=== PATIENT | male | born 1980 | race Hispanic/Latino ===

== ENCOUNTER 2019-09-07 04:43 | Observation (INO) | payer OTHER ==
[~2019-09-07] VITALS: Ht 175.3 cm; Wt 102.1 kg
[2019-09-07] MEDS ORDERED: PANTOPRAZOLE 40 MG 10ML VIAL IV STA (04:56)
[2019-09-07] MEDS ORDERED: BELLADONNA ALK/PHENOBARBITAL 5 ML UDC PO SCH (05:00)
[2019-09-07] MEDS ORDERED: LIDOCAINE VISC 2% SOLN 15 ML UDC PO ONE (05:00)
[2019-09-07] MEDS ORDERED: MAGNESIUM/ALUMINUM/SIMETHICONE 30 ML UDC PO ONE (05:00)
--- NOTE | 2019-09-07 05:17 | Emergency Department Note ---
History of Present Illnes History of Present Illness Chief Complaint: Abdominal Complaints History of Present Illness This is a 39 year old male presents with upper abdominal pain radiating up his throat with a soured the back of his mouth. Patient reportedly has had pancreatitis before reports he is a daily drinker. Denies nausea vomiting diarrhea. . Historian: Patient Arrival Mode: Car Onset (how long ago): day(s) (2) Location: EPIGASTRIC Radiation: Reports other (TO CHEST AND THROAT WITH BURNING SENSATION TO THROAT) Onset quality: gradual Duration (how long): day(s) (2) Progression: waxing and waning Chronicity: new Context: Denies recent illness Relieving factors: none Exacerbating factors: none Associated symptoms: Reports denies other symptoms (NILSA ABRAMS MD) Past Medical/Family History Physician Review I have reviewed the patient's past medical and family history. Any updates have been documented here. (NILSA ABRAMS MD) Past Medical History Recent Fever: No Clinical Suspicion of Infectio: No New/Unexplained Change in Ment: No Other Medical History: PANCREATITIS Past Surgical History: T&A, Bariatric Surgery Other Surgery: GASTRIC SLEEVE (NILSA ABRAMS MD) Social History Smoking Cessation: Current every day smoker Alcohol Use: Daily Any Illegal Drug Use: No TB Exposure/Symptoms: No Physically hurt or threatened: No (NILSA ABRAMS MD) Other Any Pre-Existing Lines (PICC,: No Is patient up to date on immun: Yes Last Flu: UTD Last Pneumovax: UNK (NILSA ABRAMS MD) Review of Systems Review of Systems Constitutional: Reports no symptoms EENTM: Reports no symptoms Cardiovascular: Reports as per HPI Respiratory: Reports no symptoms Gastrointestinal: Reports as per HPI Genitourinary: Reports no symptoms Musculoskeletal: Reports no symptoms Integumentary: Reports no symptoms Neurological: Reports no symptoms Psychological: Reports no symptoms Endocrine: Reports no symptoms Hematological/Lymphatic: Reports no symptoms (NILSA ABRAMS MD) Physical Exam Related Data Allergies: Coded Allergies: No Known Allergies (Unverified , 09/07/19) Triage Vital Signs Vital Signs Date Time Temp Pulse Resp B/P (MAP) Pulse Ox O2 Delivery O2 Flow Rate FiO2 09/07/19 04:47 62 20 157/100 100 Vital signs reviewed: Yes (NILSA ABRAMS MD) Physical Exam CONSTITUTIONAL Constitutional: Present well-developed, Present well-nourished HENT HENT: Present normocephalic, Present atraumatic, Present oropharynx clear/mois t, Present nose normal HENT L/R: Present left ext ear normal, Present right ext ear normal EYES Eyes: Reports PERRL, Reports conjunctivae normal NECK Neck: Present ROM normal PULMONARY Pulmonary: Present effort normal, Present breath sounds normal CARDIOVASCULAR Cardiovascular: Present regular rhythm, Present heart sounds normal, Present capillary refill normal, Present normal rate GASTROINTESTINAL Abdominal: Present soft, Present bowel sounds normal, Present tender (MODERATE TENDERNESS TO EPIGASTRIC, LUQ, ) GENITOURINARY Genitourinary: Present exam deferred SKIN Skin: Present warm, Present dry MUSCULOSKELETAL Musculoskeletal: Present ROM normal NEUROLOGICAL Neurological: Present alert, Present oriented x 3, Present no gross motor or sensory deficits PSYCHOLOGICAL Psychological: Present mood/affect normal, Present judgement normal (NILSA ABRAMS MD) Results Laboratory Lab results reviewed: Yes (NURIA TAVERA DO) Imaging Imaging results reviewed: Yes Impressions IMPRESSION: Acute interstitial edematous pancreatitis. No organized acute peripancreatic fluid collection. Prominent common duct. This finding may be correlated with liver function tests to assess for cholestasis and the need for further evaluation with MRCP or ERCP. Cholelithiasis. Postoperative changes of the stomach, including prior Amanda-en-Y gastric bypass. Lesions in the right and left hepatic lobes are probably hemangiomas, but are incompletely characterized on this exam. Nonemergent abdomen MRI with and without intravenous contrast (liver protocol) may be obtained for further characterization. Signed by: Nathan Barrera MD on 09/07/2019 11:02 AM (NURIA TAVERA DO) Procedures 12 Lead ECG Interpretation ECG Interpretation : ECG: ECG 1 Tube Splicer: Interpreted by ED physician Date: Sep 07, 2019 Time: 04:56 Rhythm: sinus rhythm Rate: normal BPM: 63 QRS axis: normal ST segments normal: Yes T waves normal: Yes Other findings: no other findings Clinical Impression: normal ECG (NILSA ABRAMS MD) Assessment & Plan Medical Decision Making MDM Patient is a daily drinker of alcohol presents with epigastric pain and left upper quadrant and radiates into chest and throat has a burning sensation throats are tasting back his mouth. CBC, CMP, EKG, cardiac enzymes, amylase, lipase ordered to eval for pancreatitis, myocardial infarction, elevated LFTs, Protonix 40 mg IV ordered, GI cocktail by mouth ordered. (NILSA ABRAMS MD) MDM Signout obtained from Dr. Abrams to follow-up lab work and imaging. Patient with marked lipase elevation noted, CT abdomen and pelvis performed which was consistent with mild interstitial pancreatitis. Patient required hospital admission for further workup and management. (NURIA TAVERA DO) Assessment & Plan Final Impression: (1) Abdominal pain (NILSA ABRAMS MD) Final Impression: (1) Abdominal pain (2) Pancreatitis (NURIA TAVERA DO) Depart Disposition: ADMITTED Last Vital Signs Date Time Temp Pulse Resp B/P (MAP) Pulse Ox O2 Delivery O2 Flow Rate FiO2 09/07/19 04:47 62 20 157/100 100 (NILSA ABRAMS MD) Home Meds Active Scripts Ondansetron Hcl* (ZOFRAN*) 4 Mg Tablet, 4 MG PO Q8H PRN for NAUSEA, #10 Prov:[employer] 09/08/19 Acetaminophen With Codeine (TYLENOL WITH CODEINE #3 TABLET) 1 Each Tablet, 300 MG PO Q8H PRN for ABDOMINAL PAIN, #10 TAB Prov:[employer] 09/08/19 Medications in the ED Magnesium Aluminum Silicate 30 ml ONCE ONCE PO ; Start 09/07/19 at 05:00; Stop 09/07/19 at 05:04; Status DC Lidocaine HCl 20 ml ONCE ONCE PO ; Start 09/07/19 at 05:00; Stop 09/07/19 at 05:03; Status DC Belladonna Alkaloids/ Phenobarbital 10 ml ONCE PO ; Start 09/07/19 at 05:00; Stop 10/07/19 at 04:59 Pantoprazole Sodium 40 mg NOW STAT IV ; Start 09/07/19 at 04:56; Stop 09/07/19 at 05:04; Status DC (NILSA ABRAMS MD) NILSA ABRAMS MD Sep 07, 2019 05:17 NURIA TAVERA DO Sep 09, 2019 09:39
[2019-09-07] MEDS ORDERED: ONDANSETRON HCL INJ 2MG/ML 2ML 2 MG/ML VIAL IV STA (05:29)
[2019-09-07 05:35] LABS: BASOPHILS # (AUTO) 0.1 (0.0-0.1); BASOPHILS % 0.7 % (0.0-1.0); EOSINOPHILS % 0.1 % (0.0-6.0); HEMATOCRIT 40.8 % (38.2-49.6); HEMOGLOBIN 12.5 g/dL (14.0-18.0); LYMPHOCYTES # (AUTO) 1.5 (1.0-3.2); LYMPHOCYTES % 18.1 % (18.0-39.1); MEAN CORPUSCULAR HEMOGLOBIN 25.2 pg (28-32); MEAN CORPUSCULAR HGB CONC 30.6 g/dL (31-35); MEAN CORPUSCULAR VOLUME 82.3 fL (81-99); MONOCYTES # (AUTO) 0.7 (0.2-0.8); MONOCYTES % 8.2 % (4.4-11.3); NEUTROPHILS # (AUTO) 6.1 (2.1-6.9); NEUTROPHILS % 72.7 % (38.7-80.0); PLATELET COUNT 282 x10e3/uL (140-360); RED BLOOD COUNT 4.96 x10e6/uL (4.3-5.7); RED CELL DISTRIBUTION WIDTH 15.9 % (11.7-14.4)
[2019-09-07] MEDS ORDERED: ONDANSETRON HCL INJ 2MG/ML 2ML 2 MG/ML VIAL ONE (05:40)
[2019-09-07 05:58] LABS: ALANINE AMINOTRANSFERASE 26 IU/L (0-55); ALBUMIN 3.5 g/dL (3.5-5.0); ALBUMIN/GLOBULIN RATIO 1.1 (0.8-2.0); ALKALINE PHOSPHATASE 110 IU/L (40-150); ANION GAP 16.6 mmol/L (8-16); BLOOD UREA NITROGEN 6 mg/dL (7-26); BUN/CREATININE RATIO 6 (6-25); CALCIUM 8.6 mg/dL (8.4-10.2); CARBON DIOXIDE 23 mmol/L (22-29); CHLORIDE 101 mmol/L (98-107); CREATINE KINASE 145 IU/L (30-200); CREATININE, SERUM 0.94 mg/dL (0.72-1.25); EST GLOMERULAR FILTRATION RATE > 60 ML/MIN (60-); GLUCOSE 139 mg/dL (74-118); POTASSIUM 3.6 mmol/L (3.5-5.1); SODIUM 137 mmol/L (136-145)
[2019-09-07] MEDS ORDERED: MORPHINE SULFATE 2 MG/ML SYR 1ML IV STA (06:22)
[2019-09-07 06:45] LABS: AMYLASE 366 U/L (25-125)
[2019-09-07 07:05] LABS: LIPASE 1382 U/L (8-78)
[2019-09-07] MEDS ORDERED: KETOROLAC TROMETHAMINE 30 MG/ML VIAL IV STA (07:55)
[2019-09-07] MEDS ORDERED: SODIUM CHLORIDE 0.9% 1000ML 1,000 ML IV SCH (08:00)
[2019-09-07] MEDS ORDERED: SODIUM CHLORIDE 0.9% 1000ML 1,000 ML ONE (08:10)
[2019-09-07] MEDS ORDERED: IOPAMIDOL 370 MG/ML 200 ML INFUS..BTL INJ ONE (08:36)
[2019-09-07] MEDS ORDERED: SODIUM CHLORIDE 0.9% 50ML 50 ML ONE (08:36)
--- NOTE | 2019-09-07 11:05 | Diagnostic Imaging Report ---
TECHNIQUE: CT of the abdomen and pelvis WITH intravenous contrast and WITHOUT oral contrast. Dose modulation, iterative reconstruction, and/or weight-based adjustment of the mA/kV was utilized to reduce the radiation dose to as low as reasonably achievable. INDICATION: 39-year-old man with abdominal pain. COMPARISON: None. FINDINGS: LOWER THORAX: 5 mm nodule in the left lower lobe; no follow-up imaging recommended for this finding. HEPATOBILIARY: 2.4 x 3.2 cm lesion in the left hepatic lobe with peripheral nodular enhancement. Additional 2.2 x 1.8 cm lesion in the inferior right hepatic lobe with questionable peripheral nodular enhancement. Cholelithiasis in the distended gallbladder. Common duct is prominent up to 1.2 cm in diameter. No intrahepatic biliary ductal prominence. SPLEEN: No splenomegaly. PANCREAS: Edema/nonencapsulated fluid around the homogeneously enhancing pancreas, particularly around the head and neck, also extends into the mesentery as well as along the left anterior renal fascia. No focal masses or ductal dilatation. ADRENALS: No adrenal nodules. KIDNEYS/URETERS: No hydronephrosis, stones, or solid mass lesions. PELVIC ORGANS/BLADDER: Bladder is under distended. Prostate and seminal vesicles are grossly unremarkable. PERITONEUM/RETROPERITONEUM: Trace ascites. No free air. LYMPH NODES: No lymphadenopathy. VESSELS: Unremarkable. GI TRACT: Prior Amanda-en-Y gastric bypass. Ringlike implanted device in the region of the gastric cardia. No distention or wall thickening. Normal appendix. BONES AND SOFT TISSUES: Degenerative changes of the visualized spine. Small fat-containing left internal hernia. IMPRESSION: Acute interstitial edematous pancreatitis. No organized acute peripancreatic fluid collection. Prominent common duct. This finding may be correlated with liver function tests to assess for cholestasis and the need for further evaluation with MRCP or ERCP. Cholelithiasis. Postoperative changes of the stomach, including prior Amanda-en-Y gastric bypass. Lesions in the right and left hepatic lobes are probably hemangiomas, but are incompletely characterized on this exam. Nonemergent abdomen MRI with and without intravenous contrast (liver protocol) may be obtained for further characterization. Signed by: Nathan Barrera MD on 09/07/2019 11:02 AM
[2019-09-07] MEDS ORDERED: MORPHINE SULFATE INJ 4 MG/ML INJ 1ML IV PRN (11:15)
[2019-09-07] MEDS ORDERED: ONDANSETRON HCL INJ 2MG/ML 2ML 2 MG/ML VIAL IV PRN (11:15)
[2019-09-07] MEDS: SODIUM CHLORIDE 0.9% 1000ML 1,000 ML IV SCH ×2 (12:02→20:51)
[2019-09-07 13:40] VITALS: BP 148/98
[2019-09-07] MEDS: MORPHINE SULFATE INJ 4 MG/ML INJ 1ML IV PRN ×3 (14:39→20:51)
[2019-09-07 15:41] VITALS: BP 151/88
[2019-09-07 15:43] VITALS: BP 151/88
[2019-09-07 19:47] VITALS: BP 129/84
--- NOTE | 2019-09-07 19:49 | NUR ---
pt received. pt assessed. no ss of distress noted. pt co constant abd pain. discussed pain mngt poc. verbalized understanding. will medicate per orders. pt requesting ice. discussed npo diet. verbalized understanding. will cont to follow poc. call green within reach.
--- NOTE | 2019-09-07 19:55 | NUR ---
spoke to catalina watts regarding fever. new orders received.
[2019-09-07] MEDS ORDERED: ACETAMINOPHEN 650 MG SUPP PR PRN (20:00)
--- NOTE | 2019-09-07 20:00 | NUR ---
room temp made cooler, blankets removed. no ss of distress noted. call green within reach.
--- NOTE | 2019-09-07 22:20 | NUR ---
temp rechecked at time 99 orally. no distress noted. call green within reach.
[2019-09-07 23:56] VITALS: BP 135/84
[2019-09-08] MEDS: MORPHINE SULFATE INJ 4 MG/ML INJ 1ML IV PRN ×4 (03:09→08:57)
--- NOTE | 2019-09-08 03:48 | NUR ---
spoke to dr ronaldo garcia regarding iv fluids. new orders received.
[2019-09-08] MEDS: LACTATED RINGER'S 1,000 ML INJ SCH ×2 (04:21→06:07)
--- NOTE | 2019-09-08 04:21 | NUR ---
pt resting. no ss of distress noted. call green within reach.
[2019-09-08 05:01] VITALS: BP 129/81
[2019-09-08 05:29] LABS: BASOPHILS % 0.2 % (0.0-1.0); EOSINOPHILS % 0.1 % (0.0-6.0); LYMPHOCYTES # (AUTO) 1.4 (1.0-3.2); LYMPHOCYTES % 8.7 % (18.0-39.1); MEAN CORPUSCULAR HEMOGLOBIN 25.7 pg (28-32); MEAN CORPUSCULAR HGB CONC 31.4 g/dL (31-35); MEAN CORPUSCULAR VOLUME 81.8 fL (81-99); MONOCYTES % 6.3 % (4.4-11.3); NEUTROPHILS # (AUTO) 13.1 (2.1-6.9); NEUTROPHILS % 84.3 % (38.7-80.0); PLATELET COUNT 207 x10e3/uL (140-360); RED BLOOD COUNT 4.28 x10e6/uL (4.3-5.7)
[2019-09-08 05:39] LABS: CHOL/HDL RATIO 1.5 (3.9-4.7); MAGNESIUM 1.5 MG/DL (1.3-2.1); PHOSPHORUS 2.7 MG/DL (2.3-4.7)
[2019-09-08 05:57] LABS: AMYLASE 587 U/L (25-125); ANION GAP 14.7 mmol/L (8-16); BLOOD UREA NITROGEN 7 mg/dL (7-26); BUN/CREATININE RATIO 9 (6-25); CALCIUM 7.7 mg/dL (8.4-10.2); CARBON DIOXIDE 22 mmol/L (22-29); CHLORIDE 104 mmol/L (98-107); CREATININE, SERUM 0.79 mg/dL (0.72-1.25); EST GLOMERULAR FILTRATION RATE > 60 ML/MIN (60-); GLUCOSE 109 mg/dL (74-118); LIPASE 1168 U/L (8-78); POTASSIUM 3.7 mmol/L (3.5-5.1); SODIUM 137 mmol/L (136-145)
[2019-09-08 06:00] LABS: THYROID STIMULATING HORMONE 1.766 uIU/mL (0.350-4.940)
--- NOTE | 2019-09-08 07:00 | NUR ---
BEDSIDE SHIFT REPORT FROM P[employer]ING MACHINE [employer] FEEDER RN. PT DENIES NEEDS AT THIS TIME.
[2019-09-08 08:14] VITALS: BP 128/88
[2019-09-08 08:17] VITALS: BP 128/88
[2019-09-08] MEDS ORDERED: ZOFRAN4 MG PO (09:00)
[2019-09-08] MEDS ORDERED: ACETAMINOPHEN/CODEINE 300MG - 30MG TAB PO PRN (09:00)
[2019-09-08] MEDS ORDERED: MORPHINE SULFATE INJ 4 MG/ML INJ 1ML IV PRN (09:00)
[2019-09-08] MEDS ORDERED: FAMOTIDINE 20 MG/2 ML VIAL IV SCH (09:00)
[2019-09-08] MEDS ORDERED: TYLENOL WITH C1 EACH PO (09:00)
[2019-09-08] MEDS: SODIUM CHLORIDE 0.9% 1000ML 1,000 ML IV SCH ×2 (09:07→16:57)
[2019-09-08] MEDS ORDERED: MORPHINE SULFATE 2 MG/ML SYR 1ML IV PRN (09:15)
[2019-09-08 11:52] VITALS: BP 139/91
--- NOTE | 2019-09-09 04:13 | Discharge Summary ---
ADMISSION DIAGNOSIS: Acute pancreatitis due to EtOH abuse. DISCHARGE DIAGNOSIS: Acute pancreatitis due to EtOH abuse. HISTORY: None. SURGICAL HISTORY: Gastric bypass, tonsillectomy. FAMILY HISTORY: Noncontributory. SOCIAL HISTORY: The patient admits to smoking 1 pack every three days and he drinks about 6-8 beers per week. Over the last month, he admits that he had alcohol every other day, which likely resulted in his pancreatitis. HOSPITAL COURSE: A 39-year-old male admits with epigastric pain. He denies nausea and vomiting. On admission, the patient's lipase was 1382. The patient was kept n.p.o. and IV fluids were started. GI was consulted. The following day, the patient is feeling much better, although the lipase is still elevated. He asked to advance the diet and tolerated it well, so he will discharge home with new prescriptions for Tylenol 3 and Zofran p.r.n. He will follow up with primary care in 1 to 2 weeks. He was advised to stop drinking alcohol. The patient understands instructions and agrees to plan, vital signs stable, the patient is afebrile. Dictated by Charu Damian NP MD JERICA Mccormack/MODL /[id number]
== END 2019-09-08 18:28 | disposition home or self-care (01) ==
LOC: ER 04:43 → ERHOLD 11:14 → MED/SURG2 13:37
PROVIDERS: ADMIT Internal Medicine; ATTEND Internal Medicine
DX: K85.20 Alcohol induced acute pancreatitis without necrosis or infection (principal); F17.210 Nicotine dependence, cigarettes, uncomplicated; F10.10 Alcohol abuse, uncomplicated; Z98.84 Bariatric surgery status; Z11.59 Encounter for screening for other viral diseases
CPT/HCPCS: 36415; 74177; 80048; 80053; 80061; 82150; 82550; 82553; 82948; 83036; 83690; 83735; 84100; 84443; 84484; 85025; 87635; 93005; 96376; 99284; G0378; J1885; J2270; J2405; J7030; J7121; Q9967

== ENCOUNTER 2020-09-12 12:00 | Inpatient (IN) | payer SELFPAY ==
[~2020-09-12] VITALS: Ht 175.3 cm; Wt 83.0 kg
[~2020-09-12 12:00] MED LIST: TYLENOL WITH C1 EACH PO; ZOFRAN4 MG PO
[2020-09-12] MEDS ORDERED: SODIUM CHLORIDE 0.9% 1000ML 1,000 ML ONE (12:50)
[2020-09-12] MEDS ORDERED: MORPHINE SULFATE INJ 4 MG/ML INJ 1ML ONE ×2 (12:50→13:43)
[2020-09-12] MEDS ORDERED: ONDANSETRON HCL INJ 2MG/ML 2ML 2 MG/ML VIAL ONE (12:50)
[2020-09-12] MEDS ORDERED: MORPHINE SULFATE INJ 2 MG/ML SYR IV PRN (14:45)
[2020-09-12] MEDS: SODIUM CHLORIDE 0.9% 1000ML 1,000 ML IV SCH ×2 (15:08→21:15)
[2020-09-12] MEDS ORDERED: SODIUM CHLORIDE 0.9% 50ML 50 ML ONE (15:58)
[2020-09-12] MEDS ORDERED: GADOBENATE DIMEGLUMINE 1 ML IV ONE (15:58)
[2020-09-12] MEDS: MORPHINE SULFATE INJ 4 MG/ML INJ 1ML IV PRN ×2 (17:00→21:15)
[2020-09-12] MEDS: ONDANSETRON HCL INJ 2MG/ML 2ML 2 MG/ML VIAL IV PRN ×3 (17:00→21:15)
[2020-09-12 18:38] LABS: ALANINE AMINOTRANSFERASE 25 IU/L (0-55); ALBUMIN 3.8 g/dL (3.5-5.0); ALBUMIN/GLOBULIN RATIO 1.1 (0.8-2.0); ALKALINE PHOSPHATASE 105 IU/L (40-150); ANION GAP 18.9 mmol/L (8-16); BLOOD UREA NITROGEN 8 mg/dL (7-26); BUN/CREATININE RATIO 10 (6-25); CARBON DIOXIDE 22 mmol/L (22-29); CHLORIDE 98 mmol/L (98-107); EST GLOMERULAR FILTRATION RATE 108 ML/MIN (60-); GLUCOSE 151 mg/dL (74-118); LIPASE 1010 U/L (8-78); POTASSIUM 3.9 mmol/L (3.5-5.1); SODIUM 135 mmol/L (136-145)
[2020-09-12 18:40] LABS: BASOPHILS % 0.4 % (0.0-1.0); HEMATOCRIT 43.7 % (38.2-49.6); HEMOGLOBIN 14.7 g/dL (14.0-18.0); LYMPHOCYTES % 10.3 % (18.0-39.1); MEAN CORPUSCULAR HEMOGLOBIN 29.1 pg (28-32); MEAN CORPUSCULAR HGB CONC 33.6 g/dL (31-35); MEAN CORPUSCULAR VOLUME 86.5 fL (81-99); MONOCYTES # (AUTO) 0.6 (0.2-0.8); MONOCYTES % 6.4 % (4.4-11.3); NEUTROPHILS # (AUTO) 7.9 (2.1-6.9); NEUTROPHILS % 82.5 % (38.7-80.0); PLATELET COUNT 250 x10e3/uL (140-360); RED BLOOD COUNT 5.05 x10e6/uL (4.3-5.7); RED CELL DISTRIBUTION WIDTH 15.4 % (11.7-14.4)
[2020-09-12 18:41] LABS: AMPHETAMINES SCREEN,URINE NEGATIVE (NEGATIVE); BACTERIA,URINE FEW /HPF; BENZODIAZEPINES SCREEN,URINE NEGATIVE (NEGATIVE); CLARITY,URINE CLEAR (CLEAR); COLOR,URINE YELLOW (YELLOW); EPITHELIAL CELLS,URINE FEW /LPF; KETONES,URINE 2+ (NEGATIVE); LEUKOCYTE ESTERASE ,URINE NEGATIVE (NEGATIVE); NITRITE,URINE POSITIVE (NEGATIVE); PHENCYCLIDINE SCREEN,URINE NEGATIVE (NEGATIVE); PROTEIN,URINE DIPSTICK 2+ (NEGATIVE); RBC,URINE 0-5 /HPF (0-5); URINE UROBILINOGEN 0.2 mg/dL (0.2 - 1)
[2020-09-12 19:00] VITALS: BP 148/90
[2020-09-12] MEDS: NICOTINE 14 MG/EA PATCH TOP SCH (19:15)
[2020-09-12 19:46] VITALS: BP 142/91
[2020-09-12 19:55] VITALS: BP 142/91
[2020-09-12 20:00] VITALS: BP 156/104
[2020-09-12 23:39] VITALS: BP 148/90
[2020-09-13 01:24] LABS: AMYLASE 298 U/L (25-125); LIPASE 1006 U/L (8-78)
[2020-09-13] MEDS: ONDANSETRON HCL INJ 2MG/ML 2ML 2 MG/ML VIAL IV PRN ×3 (01:25→17:20)
[2020-09-13] MEDS: MORPHINE SULFATE INJ 4 MG/ML INJ 1ML IV PRN ×2 (01:25→06:14)
[2020-09-13 04:00] VITALS: BP 141/89
[2020-09-13] MEDS ORDERED: DONNATAL/LIDOCAINE/MAALOX 30 ML SUSP PO ONE (04:45)
[2020-09-13] MEDS ORDERED: BELLADONNA ALK/PHENOBARBITAL 5 ML UDC PO ONE (04:45)
[2020-09-13] MEDS ORDERED: LIDOCAINE VISC 2% SOLN 15 ML UDC PO ONE (04:45)
[2020-09-13] MEDS ORDERED: MAGNESIUM/ALUMINUM/SIMETHICONE 30 ML UDC PO ONE (04:45)
[2020-09-13 05:56] LABS: BASOPHILS % 0.3 % (0.0-1.0); EOSINOPHILS % 0.1 % (0.0-6.0); HEMATOCRIT 39.7 % (38.2-49.6); HEMOGLOBIN 13.1 g/dL (14.0-18.0); LYMPHOCYTES # (AUTO) 1.1 (1.0-3.2); LYMPHOCYTES % 9.4 % (18.0-39.1); MEAN CORPUSCULAR HEMOGLOBIN 29.2 pg (28-32); MEAN CORPUSCULAR VOLUME 88.4 fL (81-99); MONOCYTES # (AUTO) 0.8 (0.2-0.8); MONOCYTES % 6.5 % (4.4-11.3); NEUTROPHILS % 83.4 % (38.7-80.0); PLATELET COUNT 225 x10e3/uL (140-360); RED BLOOD COUNT 4.49 x10e6/uL (4.3-5.7); RED CELL DISTRIBUTION WIDTH 15.2 % (11.7-14.4)
[2020-09-13 06:34] LABS: ALBUMIN 3.2 g/dL (3.5-5.0); CREATININE, SERUM 0.78 mg/dL (0.72-1.25)
[2020-09-13] MEDS: SODIUM CHLORIDE 0.9% 1000ML 1,000 ML IV SCH ×3 (06:50→17:30)
[2020-09-13 08:09] VITALS: BP 147/84
[2020-09-13] MEDS: CEFTRIAXONE 1 GM in SODIUM CHLORIDE 0.9% 50ML 50 ML IV SCH (08:20)
[2020-09-13] MEDS: NICOTINE 14 MG/EA PATCH TOP SCH (08:20)
[2020-09-13] MEDS: SUCRALFATE 1 GM TAB PO SCH ×4 (08:23→21:14)
[2020-09-13 08:55] VITALS: BP 147/84
[2020-09-13] MEDS: HYDROMORPHONE 1MG/1ML INJ IV PRN ×4 (09:03→19:31)
[2020-09-13 11:23] VITALS: BP 144/88
[2020-09-13 15:16] VITALS: BP 144/95
[2020-09-13 20:00] VITALS: BP 143/88
[2020-09-14] VITALS (8 sets, daily range): BP systolic 117–159; BP diastolic 81–104
[2020-09-14] MEDS: ONDANSETRON HCL INJ 2MG/ML 2ML 2 MG/ML VIAL IV PRN (00:35)
[2020-09-14] MEDS: HYDROMORPHONE 1MG/1ML INJ IV PRN ×4 (00:42→21:01)
[2020-09-14] MEDS: SODIUM CHLORIDE 0.9% 1000ML 1,000 ML IV SCH ×3 (02:52→20:53)
[2020-09-14] MEDS ORDERED: ACETAMINOPHEN 325 MG TAB PO PRN (03:30)
[2020-09-14 05:30] LABS: BASOPHILS % 0.3 % (0.0-1.0); EOSINOPHILS # (AUTO) 0.1 (0.0-0.4); EOSINOPHILS % 0.7 % (0.0-6.0); HEMATOCRIT 36.1 % (38.2-49.6); HEMOGLOBIN 11.7 g/dL (14.0-18.0); LYMPHOCYTES # (AUTO) 1.5 (1.0-3.2); LYMPHOCYTES % 15.1 % (18.0-39.1); MEAN CORPUSCULAR HEMOGLOBIN 29.1 pg (28-32); MEAN CORPUSCULAR HGB CONC 32.4 g/dL (31-35); MEAN CORPUSCULAR VOLUME 89.8 fL (81-99); MONOCYTES # (AUTO) 0.7 (0.2-0.8); MONOCYTES % 6.8 % (4.4-11.3); NEUTROPHILS # (AUTO) 7.7 (2.1-6.9); NEUTROPHILS % 76.7 % (38.7-80.0); PLATELET COUNT 177 x10e3/uL (140-360); RED BLOOD COUNT 4.02 x10e6/uL (4.3-5.7); RED CELL DISTRIBUTION WIDTH 15.1 % (11.7-14.4)
[2020-09-14 06:01] LABS: ALANINE AMINOTRANSFERASE 19 IU/L (0-55); ALBUMIN 2.9 g/dL (3.5-5.0); ALBUMIN/GLOBULIN RATIO 0.9 (0.8-2.0); ALKALINE PHOSPHATASE 77 IU/L (40-150); ANION GAP 13.4 mmol/L (8-16); BLOOD UREA NITROGEN < 5 mg/dL (7-26); CALCIUM 8.2 mg/dL (8.4-10.2); CARBON DIOXIDE 26 mmol/L (22-29); CHLORIDE 99 mmol/L (98-107); CREATININE, SERUM 0.69 mg/dL (0.72-1.25); EST GLOMERULAR FILTRATION RATE 128 ML/MIN (60-); GLUCOSE 77 mg/dL (74-118); POTASSIUM 3.4 mmol/L (3.5-5.1); SODIUM 135 mmol/L (136-145)
[2020-09-14 06:08] LABS: BUN/CREATININE RATIO 7 (6-25)
[2020-09-14 07:27] LABS: AMYLASE 227 U/L (25-125); LIPASE 647 U/L (8-78)
[2020-09-14] MEDS: SUCRALFATE 1 GM TAB PO SCH ×4 (09:25→20:53)
[2020-09-14] MEDS: NICOTINE 14 MG/EA PATCH TOP SCH (09:25)
[2020-09-14] MEDS: CEFTRIAXONE 1 GM in SODIUM CHLORIDE 0.9% 50ML 50 ML IV SCH (09:25)
[2020-09-14] MEDS ORDERED: POTASSIUM CHLORIDE 10MEQ/100ML 400 ML IV ONE (11:00)
[2020-09-15] VITALS (8 sets, daily range): BP systolic 129–151; BP diastolic 79–97
[2020-09-15] MEDS: HYDROMORPHONE 1MG/1ML INJ IV PRN ×6 (00:20→21:51)
[2020-09-15] MEDS ORDERED: LIDOCAINE VISC 2% SOLN 15 ML UDC PO ONE (04:15)
[2020-09-15] MEDS ORDERED: BELLADONNA ALK/PHENOBARBITAL 5 ML UDC PO ONE (04:15)
[2020-09-15] MEDS ORDERED: MAGNESIUM/ALUMINUM/SIMETHICONE 30 ML UDC PO ONE (04:15)
[2020-09-15] MEDS ORDERED: DONNATAL/LIDOCAINE/MAALOX 30 ML SUSP PO ONE (04:15)
[2020-09-15] MEDS: SODIUM CHLORIDE 0.9% 1000ML 1,000 ML IV SCH ×3 (04:43→21:44)
[2020-09-15 04:53] LABS: BASOPHILS % 0.5 % (0.0-1.0); EOSINOPHILS # (AUTO) 0.1 (0.0-0.4); EOSINOPHILS % 1.3 % (0.0-6.0); HEMATOCRIT 37.7 % (38.2-49.6); HEMOGLOBIN 12.5 g/dL (14.0-18.0); LYMPHOCYTES # (AUTO) 1.6 (1.0-3.2); LYMPHOCYTES % 18.8 % (18.0-39.1); MEAN CORPUSCULAR HEMOGLOBIN 29.1 pg (28-32); MEAN CORPUSCULAR HGB CONC 33.2 g/dL (31-35); MEAN CORPUSCULAR VOLUME 87.7 fL (81-99); MONOCYTES # (AUTO) 0.7 (0.2-0.8); MONOCYTES % 7.7 % (4.4-11.3); NEUTROPHILS # (AUTO) 6.2 (2.1-6.9); NEUTROPHILS % 71.5 % (38.7-80.0); PLATELET COUNT 200 x10e3/uL (140-360); RED CELL DISTRIBUTION WIDTH 14.6 % (11.7-14.4)
[2020-09-15 05:18] LABS: ALANINE AMINOTRANSFERASE 14 IU/L (0-55); ALBUMIN/GLOBULIN RATIO 0.9 (0.8-2.0); ALKALINE PHOSPHATASE 72 IU/L (40-150); AMYLASE 178 U/L (25-125); ANION GAP 13.5 mmol/L (8-16); BLOOD UREA NITROGEN < 5 mg/dL (7-26); CARBON DIOXIDE 24 mmol/L (22-29); CHLORIDE 101 mmol/L (98-107); CREATININE, SERUM 0.68 mg/dL (0.72-1.25); EST GLOMERULAR FILTRATION RATE 130 ML/MIN (60-); GLUCOSE 123 mg/dL (74-118); LIPASE 962 U/L (8-78); POTASSIUM 3.5 mmol/L (3.5-5.1); SODIUM 135 mmol/L (136-145)
[2020-09-15 05:19] LABS: BUN/CREATININE RATIO 7 (6-25)
[2020-09-15] MEDS: NICOTINE 14 MG/EA PATCH TOP SCH (09:12)
[2020-09-15] MEDS: CEFTRIAXONE 1 GM in SODIUM CHLORIDE 0.9% 50ML 50 ML IV SCH (09:12)
[2020-09-15] MEDS: SUCRALFATE 1 GM TAB PO SCH ×4 (09:12→21:44)
[2020-09-15] MEDS: ONDANSETRON HCL INJ 2MG/ML 2ML 2 MG/ML VIAL IV PRN (09:13)
[2020-09-16] VITALS (8 sets, daily range): BP systolic 139–158; BP diastolic 75–98
[2020-09-16] MEDS: SODIUM CHLORIDE 0.9% 1000ML 1,000 ML IV SCH ×3 (05:00→23:36)
[2020-09-16 05:46] LABS: BASOPHILS # (AUTO) 0.1 (0.0-0.1); BASOPHILS % 0.8 % (0.0-1.0); EOSINOPHILS # (AUTO) 0.1 (0.0-0.4); EOSINOPHILS % 1.1 % (0.0-6.0); HEMOGLOBIN 11.4 g/dL (14.0-18.0); LYMPHOCYTES # (AUTO) 1.3 (1.0-3.2); LYMPHOCYTES % 20.8 % (18.0-39.1); MEAN CORPUSCULAR HEMOGLOBIN 29.2 pg (28-32); MEAN CORPUSCULAR HGB CONC 32.6 g/dL (31-35); MEAN CORPUSCULAR VOLUME 89.7 fL (81-99); MONOCYTES # (AUTO) 0.5 (0.2-0.8); MONOCYTES % 7.9 % (4.4-11.3); NEUTROPHILS # (AUTO) 4.5 (2.1-6.9); NEUTROPHILS % 69.1 % (38.7-80.0); PLATELET COUNT 199 x10e3/uL (140-360)
[2020-09-16 06:06] LABS: ALANINE AMINOTRANSFERASE 13 IU/L (0-55); ALBUMIN 3.1 g/dL (3.5-5.0); ALKALINE PHOSPHATASE 64 IU/L (40-150); AMYLASE 157 U/L (25-125); ANION GAP 11.6 mmol/L (8-16); BLOOD UREA NITROGEN < 5 mg/dL (7-26); BUN/CREATININE RATIO 7 (6-25); CALCIUM 8.1 mg/dL (8.4-10.2); CARBON DIOXIDE 28 mmol/L (22-29); CHLORIDE 102 mmol/L (98-107); CREATININE, SERUM 0.71 mg/dL (0.72-1.25); EST GLOMERULAR FILTRATION RATE 124 ML/MIN (60-); GLUCOSE 141 mg/dL (74-118); LIPASE 758 U/L (8-78); POTASSIUM 3.6 mmol/L (3.5-5.1); SODIUM 138 mmol/L (136-145)
[2020-09-16] MEDS: HYDROMORPHONE 1MG/1ML INJ IV PRN ×4 (07:52→23:36)
[2020-09-16] MEDS: SUCRALFATE 1 GM TAB PO SCH ×4 (07:52→21:39)
[2020-09-16] MEDS: NICOTINE 14 MG/EA PATCH TOP SCH (09:00)
[2020-09-16] MEDS ORDERED: MULTIVITAMINS- 12 INJECTION 10 ML, FOLIC ACID MDV 5 MG, THIAMINE HCL INJ 100 MG in SODI... IV ONE (14:00)
[2020-09-16] MEDS: CHLORDIAZEPOXIDE HCL 25 MG CAP PO PRN ×2 (14:17→21:39)
[2020-09-17] VITALS (8 sets, daily range): BP systolic 136–159; BP diastolic 84–105
[2020-09-17 05:57] LABS: AMYLASE 176 U/L (25-125); LIPASE 694 U/L (8-78)
[2020-09-17] MEDS: CHLORDIAZEPOXIDE HCL 25 MG CAP PO PRN ×2 (06:04→22:38)
[2020-09-17] MEDS: HYDROMORPHONE 1MG/1ML INJ IV PRN ×3 (06:05→22:44)
[2020-09-17] MEDS: SUCRALFATE 1 GM TAB PO SCH ×4 (07:30→21:50)
[2020-09-17] MEDS: SODIUM CHLORIDE 0.9% 1000ML 1,000 ML IV SCH ×3 (10:40→17:57)
[2020-09-17] MEDS: NICOTINE 14 MG/EA PATCH TOP SCH (10:40)
[2020-09-18] VITALS (8 sets, daily range): BP systolic 129–141; BP diastolic 78–96
[2020-09-18] MEDS: SODIUM CHLORIDE 0.9% 1000ML 1,000 ML IV SCH ×3 (01:00→16:28)
[2020-09-18] MEDS: HYDROMORPHONE 1MG/1ML INJ IV PRN ×4 (07:26→22:52)
[2020-09-18] MEDS: CHLORDIAZEPOXIDE HCL 25 MG CAP PO PRN ×2 (07:26→23:20)
[2020-09-18] MEDS ORDERED: LORAZEPAM 1 MG TAB PO PRN (08:15)
[2020-09-18] MEDS: SUCRALFATE 1 GM TAB PO SCH ×4 (08:30→21:55)
[2020-09-18] MEDS: NICOTINE 14 MG/EA PATCH TOP SCH (08:34)
[2020-09-18] MEDS ORDERED: HALOPERIDOL 5 MG TAB PO ONE (08:45)
[2020-09-18] MEDS ORDERED: HALOPERIDOL 1 MG TAB PO ONE (09:00)
[2020-09-19] VITALS (9 sets, daily range): BP systolic 109–133; BP diastolic 68–88
[2020-09-19] MEDS: SODIUM CHLORIDE 0.9% 1000ML 1,000 ML IV SCH ×3 (00:22→16:33)
[2020-09-19] MEDS: HYDROMORPHONE 1MG/1ML INJ IV PRN ×4 (05:07→20:44)
[2020-09-19 05:56] LABS: ALBUMIN 3.1 g/dL (3.5-5.0); ALBUMIN/GLOBULIN RATIO 1.1 (0.8-2.0); ANION GAP 15.3 mmol/L (8-16); CALCIUM 7.9 mg/dL (8.4-10.2); CREATININE, SERUM 0.72 mg/dL (0.72-1.25); POTASSIUM 3.3 mmol/L (3.5-5.1)
[2020-09-19] MEDS: SUCRALFATE 1 GM TAB PO SCH ×4 (08:11→20:43)
[2020-09-19] MEDS: CHLORDIAZEPOXIDE HCL 25 MG CAP PO PRN ×2 (08:16→16:33)
[2020-09-19] MEDS ORDERED: POTASSIUM CHLORIDE 10MEQ EA PO ONE (09:15)
[2020-09-19] MEDS: NICOTINE 14 MG/EA PATCH TOP SCH (10:17)
[2020-09-20] VITALS (8 sets, daily range): BP systolic 118–157; BP diastolic 67–81
[2020-09-20] MEDS: SODIUM CHLORIDE 0.9% 1000ML 1,000 ML IV SCH ×4 (00:29→15:15)
[2020-09-20] MEDS: CHLORDIAZEPOXIDE HCL 25 MG CAP PO PRN (00:29)
[2020-09-20] MEDS: HYDROMORPHONE 1MG/1ML INJ IV PRN ×4 (00:41→20:27)
[2020-09-20 05:11] LABS: BASOPHILS % 0.8 % (0.0-1.0); EOSINOPHILS # (AUTO) 0.1 (0.0-0.4); EOSINOPHILS % 2.4 % (0.0-6.0); HEMATOCRIT 41.6 % (38.2-49.6); HEMOGLOBIN 13.2 g/dL (14.0-18.0); LYMPHOCYTES # (AUTO) 1.8 (1.0-3.2); LYMPHOCYTES % 36.5 % (18.0-39.1); MEAN CORPUSCULAR HEMOGLOBIN 28.9 pg (28-32); MEAN CORPUSCULAR HGB CONC 31.7 g/dL (31-35); MEAN CORPUSCULAR VOLUME 91.2 fL (81-99); MONOCYTES # (AUTO) 0.5 (0.2-0.8); MONOCYTES % 9.3 % (4.4-11.3); NEUTROPHILS # (AUTO) 2.5 (2.1-6.9); NEUTROPHILS % 50.4 % (38.7-80.0); PLATELET COUNT 250 x10e3/uL (140-360); RED BLOOD COUNT 4.56 x10e6/uL (4.3-5.7); RED CELL DISTRIBUTION WIDTH 14.8 % (11.7-14.4)
[2020-09-20 05:24] LABS: % IRON SATURATION 13 % (15-50); ALANINE AMINOTRANSFERASE 13 IU/L (0-55); ALBUMIN 3.1 g/dL (3.5-5.0); ALBUMIN/GLOBULIN RATIO 1.1 (0.8-2.0); ALKALINE PHOSPHATASE 61 IU/L (40-150); ANION GAP 15.7 mmol/L (8-16); CALCIUM 8.2 mg/dL (8.4-10.2); CARBON DIOXIDE 15 mmol/L (22-29); CHLORIDE 110 mmol/L (98-107); CREATININE, SERUM 0.76 mg/dL (0.72-1.25); GLUCOSE 65 mg/dL (74-118); IRON 45 ug/dL (65-175); LIPASE 293 U/L (8-78); POTASSIUM 3.7 mmol/L (3.5-5.1); SODIUM 137 mmol/L (136-145); TOTAL IRON BINDING CAPACITY 336 ug/dL (261-478); TRANSFERRIN 240 mg/dL (174-364)
[2020-09-20 05:47] LABS: FERRITIN 44.01 ng/mL (21.81-274.66)
[2020-09-20 06:05] LABS: BUN/CREATININE RATIO 7 (6-25)
[2020-09-20 06:06] LABS: BLOOD UREA NITROGEN < 5 mg/dL (7-26)
[2020-09-20] MEDS: SUCRALFATE 1 GM TAB PO SCH ×4 (07:30→20:26)
[2020-09-20] MEDS: THIAMINE HCL 100 MG TAB PO SCH (08:35)
[2020-09-20] MEDS: NICOTINE 14 MG/EA PATCH TOP SCH (08:36)
[2020-09-20] MEDS: CHLORDIAZEPOXIDE HCL 25 MG CAP PO SCH (20:27)
[2020-09-21] VITALS (7 sets, daily range): BP systolic 115–129; BP diastolic 68–86
[2020-09-21] MEDS: SODIUM CHLORIDE 0.9% 1000ML 1,000 ML IV SCH ×4 (02:00→21:36)
[2020-09-21] MEDS: HYDROMORPHONE 1MG/1ML INJ IV PRN ×4 (03:00→21:37)
[2020-09-21 06:47] LABS: ALANINE AMINOTRANSFERASE 11 IU/L (0-55); ALBUMIN/GLOBULIN RATIO 1.2 (0.8-2.0); ALKALINE PHOSPHATASE 54 IU/L (40-150); ANION GAP 11.3 mmol/L (8-16); CARBON DIOXIDE 20 mmol/L (22-29); CHLORIDE 114 mmol/L (98-107); CREATININE, SERUM 0.71 mg/dL (0.72-1.25); EST GLOMERULAR FILTRATION RATE 124 ML/MIN (60-); GLUCOSE 102 mg/dL (74-118); POTASSIUM 3.3 mmol/L (3.5-5.1); SODIUM 142 mmol/L (136-145)
[2020-09-21 07:22] LABS: BLOOD UREA NITROGEN < 5 mg/dL (7-26); BUN/CREATININE RATIO 7 (6-25)
[2020-09-21] MEDS: SUCRALFATE 1 GM TAB PO SCH ×2 (07:30→11:30)
[2020-09-21] MEDS: THIAMINE HCL 100 MG TAB PO SCH (09:00)
[2020-09-21] MEDS: CHLORDIAZEPOXIDE HCL 25 MG CAP PO SCH ×2 (09:00→21:36)
[2020-09-21] MEDS: NICOTINE 14 MG/EA PATCH TOP SCH (09:00)
[2020-09-21] MEDS ORDERED: POTASSIUM CHLORIDE 10MEQ EA PO ONE (09:45)
[2020-09-22] VITALS (9 sets, daily range): BP systolic 104–120; BP diastolic 64–78
[2020-09-22] MEDS: HYDROMORPHONE 1MG/1ML INJ IV PRN ×2 (00:26→09:26)
[2020-09-22 05:26] LABS: ANION GAP 11.4 mmol/L (8-16); CALCIUM 8.7 mg/dL (8.4-10.2); CARBON DIOXIDE 24 mmol/L (22-29); CHLORIDE 109 mmol/L (98-107); CREATININE, SERUM 0.78 mg/dL (0.72-1.25); EST GLOMERULAR FILTRATION RATE 111 ML/MIN (60-); GLUCOSE 103 mg/dL (74-118); LIPASE 302 U/L (8-78); MAGNESIUM 1.2 MG/DL (1.3-2.1); POTASSIUM 3.4 mmol/L (3.5-5.1); SODIUM 141 mmol/L (136-145)
[2020-09-22 05:28] LABS: BLOOD UREA NITROGEN < 5 mg/dL (7-26); BUN/CREATININE RATIO 6 (6-25)
[2020-09-22] MEDS: SODIUM CHLORIDE 0.9% 1000ML 1,000 ML IV SCH ×3 (06:30→16:40)
[2020-09-22] MEDS: CHLORDIAZEPOXIDE HCL 25 MG CAP PO SCH (09:22)
[2020-09-22] MEDS: THIAMINE HCL 100 MG TAB PO SCH (09:23)
[2020-09-22] MEDS: NICOTINE 14 MG/EA PATCH TOP SCH (09:25)
[2020-09-22] MEDS ORDERED: POTASSIUM CHLORIDE 10MEQ EA PO ONE (11:30)
[2020-09-22] MEDS ORDERED: PANTOPRAZOLE SO40 MG PO (11:45)
[2020-09-22] MEDS ORDERED: NICODERM CQ1 EAC1 TOP (11:45)
[2020-09-22] MEDS ORDERED: HYDROCODON-ACE1 EA11 PO (11:45)
[2020-09-22] MEDS ORDERED: B-1100 MG PO (11:45)
[2020-09-22] MEDS ORDERED: CHLORDIAZEPOXID25 MG PO (11:45)
[2020-09-22] MEDS: HYDROCODONE/APAP 5MG-325MG TAB PO PRN ×2 (14:42→23:45)
[2020-09-23] MEDS: SODIUM CHLORIDE 0.9% 1000ML 1,000 ML IV SCH (01:34)
[2020-09-23 04:25] VITALS: BP 114/65
[2020-09-23 05:18] LABS: ANION GAP 9.5 mmol/L (8-16); CALCIUM 8.4 mg/dL (8.4-10.2); CARBON DIOXIDE 26 mmol/L (22-29); CHLORIDE 111 mmol/L (98-107); EST GLOMERULAR FILTRATION RATE 108 ML/MIN (60-); GLUCOSE 117 mg/dL (74-118); LIPASE 220 U/L (8-78); POTASSIUM 3.5 mmol/L (3.5-5.1); SODIUM 143 mmol/L (136-145)
[2020-09-23 05:36] LABS: BLOOD UREA NITROGEN < 5 mg/dL (7-26); BUN/CREATININE RATIO 6 (6-25)
[2020-09-23 08:07] VITALS: BP 138/89
[2020-09-23 08:25] VITALS: BP 138/89
[2020-09-23] MEDS ORDERED: CHLORDIAZEPOXIDE HCL 25 MG CAP PO SCH (09:00)
[2020-09-23] MEDS: NICOTINE 14 MG/EA PATCH TOP SCH (10:00)
[2020-09-23] MEDS: HYDROCODONE/APAP 5MG-325MG TAB PO PRN (10:00)
[2020-09-23] MEDS: THIAMINE HCL 100 MG TAB PO SCH (10:00)
[2020-09-23 11:20] VITALS: BP 112/71
[2020-09-23] MEDS ORDERED: POTASSIUM CHLORIDE 10MEQ EA PO ONE (12:30)
== END 2020-09-23 14:33 | disposition home or self-care (01) | DRG 440 ==
LOC: ER 12:40 → ERHOLD 15:00 → MED/SURG2 17:56
PROVIDERS: ADMIT Internal Medicine; ATTEND Internal Medicine
DX: K85.20 Alcohol induced acute pancreatitis without necrosis or infection (principal); F10.20 Alcohol dependence, uncomplicated; K80.80 Other cholelithiasis without obstruction; K76.0 Fatty (change of) liver, not elsewhere classified; F17.200 Nicotine dependence, unspecified, uncomplicated; Z20.822 Contact with and (suspected) exposure to COVID-19
CPT/HCPCS: 36415; 71045; 74183; 76705; 80048; 80053; 80074; 80307; 80320; 81001; 82150; 82607; 82728; 82746; 82948; 83036; 83540; 83690; 83735; 84466; 84478; 84484; 85025; 86704; 87086; 93005; 96360; 96361; 99284; J0696; J1170; J2270; J2405; J3411; J3480; J7030; U0002

== ENCOUNTER 2020-12-26 21:20 | Inpatient (IN) | payer SELFPAY ==
[~2020-12-26] VITALS: Ht 175.3 cm; Wt 88.3 kg
[~2020-12-26 21:20] MED LIST changes: +B-1100 MG PO; +CHLORDIAZEPOXID25 MG PO; +HYDROCODON-ACE1 EA11 PO; +NICODERM CQ1 EAC1 TOP; +PANTOPRAZOLE SO40 MG PO
[2020-12-26] MEDS ORDERED: ONDANSETRON HCL INJ 2MG/ML 2ML 2 MG/ML VIAL IV STA (21:48)
[2020-12-26] MEDS ORDERED: MORPHINE SULFATE INJ 4 MG/ML INJ 1ML IV STA (21:52)
[2020-12-26] MEDS ORDERED: SODIUM CHLORIDE 0.9% 1000ML 1,000 ML IV ONE ×2 (22:00)
[2020-12-26 22:15] LABS: BASOPHILS # (AUTO) 0.1 (0.0-0.1); BASOPHILS % 0.3 % (0.0-1.0); HEMATOCRIT 42.9 % (38.2-49.6); HEMOGLOBIN 14.3 g/dL (14.0-18.0); LYMPHOCYTES # (AUTO) 0.9 (1.0-3.2); LYMPHOCYTES % 5.4 % (18.0-39.1); MEAN CORPUSCULAR HEMOGLOBIN 30.2 pg (28-32); MEAN CORPUSCULAR HGB CONC 33.3 g/dL (31-35); MEAN CORPUSCULAR VOLUME 90.5 fL (81-99); MONOCYTES # (AUTO) 0.6 (0.2-0.8); MONOCYTES % 3.4 % (4.4-11.3); NEUTROPHILS # (AUTO) 14.9 (2.1-6.9); NEUTROPHILS % 90.2 % (38.7-80.0); PLATELET COUNT 191 x10e3/uL (140-360); RED BLOOD COUNT 4.74 x10e6/uL (4.3-5.7); RED CELL DISTRIBUTION WIDTH 14.1 % (11.7-14.4)
[2020-12-26 22:33] LABS: ALBUMIN 4.1 g/dL (3.5-5.0); ALBUMIN/GLOBULIN RATIO 1.2 (0.8-2.0); AMYLASE 233 U/L (25-125); ANION GAP 17.1 mmol/L (8-16); CALCIUM 7.8 mg/dL (8.4-10.2); CREATININE, SERUM 0.83 mg/dL (0.72-1.25); LIPASE 509 U/L (8-78); POTASSIUM 4.1 mmol/L (3.5-5.1)
[2020-12-27] VITALS (12 sets, daily range): BP systolic 140–160; BP diastolic 92–106
[2020-12-27] MEDS: SODIUM CHLORIDE 0.9% 1000ML 1,000 ML IV SCH ×4 (00:07→15:09)
[2020-12-27] MEDS: MORPHINE SULFATE INJ 4 MG/ML INJ 1ML IV PRN ×5 (00:08→19:59)
[2020-12-27] MEDS: ONDANSETRON HCL INJ 2MG/ML 2ML 2 MG/ML VIAL IV PRN ×2 (00:14→09:06)
[2020-12-27 06:46] LABS: BASOPHILS % 0.2 % (0.0-1.0); HEMATOCRIT 38.7 % (38.2-49.6); MEAN CORPUSCULAR HEMOGLOBIN 30.3 pg (28-32); MEAN CORPUSCULAR HGB CONC 33.6 g/dL (31-35); MEAN CORPUSCULAR VOLUME 90.2 fL (81-99); MONOCYTES # (AUTO) 0.8 (0.2-0.8); MONOCYTES % 5.6 % (4.4-11.3); NEUTROPHILS # (AUTO) 12.6 (2.1-6.9); NEUTROPHILS % 86.4 % (38.7-80.0); PLATELET COUNT 153 x10e3/uL (140-360); RED BLOOD COUNT 4.29 x10e6/uL (4.3-5.7); RED CELL DISTRIBUTION WIDTH 14.3 % (11.7-14.4)
[2020-12-27 07:12] LABS: ALBUMIN 3.2 g/dL (3.5-5.0); ALBUMIN/GLOBULIN RATIO 1.2 (0.8-2.0); CALCIUM 7.8 mg/dL (8.4-10.2); CREATININE, SERUM 0.74 mg/dL (0.72-1.25)
[2020-12-27 09:31] LABS: CHOL/HDL RATIO 1.6 (3.9-4.7)
[2020-12-28] VITALS (9 sets, daily range): BP systolic 135–148; BP diastolic 94–99
[2020-12-28] MEDS: MORPHINE SULFATE INJ 4 MG/ML INJ 1ML IV PRN ×4 (01:05→20:45)
[2020-12-28 05:01] LABS: BASOPHILS % 0.2 % (0.0-1.0); EOSINOPHILS % 0.3 % (0.0-6.0); HEMATOCRIT 36.6 % (38.2-49.6); HEMOGLOBIN 12.1 g/dL (14.0-18.0); LYMPHOCYTES # (AUTO) 1.6 (1.0-3.2); LYMPHOCYTES % 12.5 % (18.0-39.1); MEAN CORPUSCULAR HEMOGLOBIN 30.8 pg (28-32); MEAN CORPUSCULAR HGB CONC 33.1 g/dL (31-35); MEAN CORPUSCULAR VOLUME 93.1 fL (81-99); MONOCYTES # (AUTO) 0.9 (0.2-0.8); MONOCYTES % 7.1 % (4.4-11.3); NEUTROPHILS % 79.5 % (38.7-80.0); PLATELET COUNT 124 x10e3/uL (140-360); RED BLOOD COUNT 3.93 x10e6/uL (4.3-5.7); RED CELL DISTRIBUTION WIDTH 14.3 % (11.7-14.4)
[2020-12-28] MEDS: SODIUM CHLORIDE 0.9% 1000ML 1,000 ML IV SCH ×7 (05:05→16:26)
[2020-12-28 05:17] LABS: ALBUMIN/GLOBULIN RATIO 1.2 (0.8-2.0); ANION GAP 13.5 mmol/L (8-16); CALCIUM 7.9 mg/dL (8.4-10.2); CREATININE, SERUM 0.72 mg/dL (0.72-1.25); MAGNESIUM 1.3 MG/DL (1.3-2.1); POTASSIUM 3.5 mmol/L (3.5-5.1)
[2020-12-28] MEDS: NICOTINE 14 MG/EA PATCH TOP SCH (09:35)
[2020-12-29] VITALS (8 sets, daily range): BP systolic 136–148; BP diastolic 89–103
[2020-12-29] MEDS: MORPHINE SULFATE INJ 4 MG/ML INJ 1ML IV PRN ×5 (00:45→22:00)
[2020-12-29] MEDS: HYDRALAZINE HCL 20 MG/ML VIAL IV PRN (05:00)
[2020-12-29 05:03] LABS: BASOPHILS % 0.5 % (0.0-1.0); EOSINOPHILS % 0.5 % (0.0-6.0); HEMATOCRIT 40.6 % (38.2-49.6); HEMOGLOBIN 13.3 g/dL (14.0-18.0); LYMPHOCYTES % 11.7 % (18.0-39.1); MEAN CORPUSCULAR HEMOGLOBIN 30.7 pg (28-32); MEAN CORPUSCULAR HGB CONC 32.8 g/dL (31-35); MEAN CORPUSCULAR VOLUME 93.8 fL (81-99); MONOCYTES # (AUTO) 0.6 (0.2-0.8); MONOCYTES % 6.8 % (4.4-11.3); PLATELET COUNT 150 x10e3/uL (140-360); RED BLOOD COUNT 4.33 x10e6/uL (4.3-5.7); RED CELL DISTRIBUTION WIDTH 14.1 % (11.7-14.4)
[2020-12-29 05:25] LABS: ALBUMIN 3.5 g/dL (3.5-5.0); ALBUMIN/GLOBULIN RATIO 0.9 (0.8-2.0); ANION GAP 17.6 mmol/L (8-16); CALCIUM 8.8 mg/dL (8.4-10.2); CREATININE, SERUM 0.76 mg/dL (0.72-1.25); POTASSIUM 3.6 mmol/L (3.5-5.1)
[2020-12-29] MEDS: SODIUM CHLORIDE 0.9% 1000ML 1,000 ML IV SCH ×4 (06:59→13:06)
[2020-12-29] MEDS: NICOTINE 14 MG/EA PATCH TOP SCH (08:33)
[2020-12-29] MEDS ORDERED: BISACODYL 5 MG TAB EC PO STA (23:01)
[2020-12-30] VITALS (7 sets, daily range): BP systolic 122–154; BP diastolic 76–100
[2020-12-30] MEDS ORDERED: BISACODYL 5 MG TAB EC PO ONE (00:20)
[2020-12-30] MEDS: SODIUM CHLORIDE 0.9% 1000ML 1,000 ML IV SCH (05:49)
[2020-12-30 07:34] LABS: AMYLASE 105 U/L (25-125); LIPASE 444 U/L (8-78)
[2020-12-30] MEDS: NICOTINE 14 MG/EA PATCH TOP SCH (09:21)
[2020-12-30] MEDS: MORPHINE SULFATE INJ 4 MG/ML INJ 1ML IV PRN ×2 (09:21→20:19)
[2020-12-30] MEDS: HYDRALAZINE HCL 20 MG/ML VIAL IV PRN (20:19)
[2020-12-31] VITALS (10 sets, daily range): BP systolic 110–154; BP diastolic 68–100
[2020-12-31] MEDS: MORPHINE SULFATE INJ 4 MG/ML INJ 1ML IV PRN ×4 (00:35→23:07)
[2020-12-31] MEDS: SODIUM CHLORIDE 0.9% 1000ML 1,000 ML IV SCH ×4 (05:32→20:59)
[2020-12-31 06:49] LABS: ALANINE AMINOTRANSFERASE 23 IU/L (0-55); ALBUMIN 2.9 g/dL (3.5-5.0); ALKALINE PHOSPHATASE 113 IU/L (40-150); ANION GAP 12.6 mmol/L (8-16); BLOOD UREA NITROGEN < 5 mg/dL (7-26); BUN/CREATININE RATIO 7 (6-25); CALCIUM 8.2 mg/dL (8.4-10.2); CARBON DIOXIDE 27 mmol/L (22-29); CHLORIDE 105 mmol/L (98-107); CREATININE, SERUM 0.71 mg/dL (0.72-1.25); EST GLOMERULAR FILTRATION RATE 124 ML/MIN (60-); GLUCOSE 119 mg/dL (74-118); LIPASE 385 U/L (8-78); POTASSIUM 3.6 mmol/L (3.5-5.1); SODIUM 141 mmol/L (136-145)
[2020-12-31] MEDS: NICOTINE 14 MG/EA PATCH TOP SCH (08:53)
[2020-12-31] MEDS ORDERED: SODIUM CHLORIDE 0.9% 50ML 50 ML ONE (09:07)
[2021-01-01] VITALS: BP 139/82
[2021-01-01] MEDS: SODIUM CHLORIDE 0.9% 1000ML 1,000 ML IV SCH (02:54)
[2021-01-01 04:00] VITALS: BP 129/87
[2021-01-01 07:00] LABS: AMYLASE 120 U/L (25-125); LIPASE 396 U/L (8-78)
[2021-01-01 08:03] VITALS: BP 134/96
[2021-01-01] MEDS: NICOTINE 14 MG/EA PATCH TOP SCH (08:32)
[2021-01-01 10:57] VITALS: BP 134/96
== END 2021-01-01 11:07 | disposition home or self-care (01) | DRG 439 ==
LOC: ER 21:46 → ERHOLD 23:06 → MED/SURG2 12-27 02:09
PROVIDERS: ADMIT Internal Medicine; ATTEND Internal Medicine
DX: K86.0 Alcohol-induced chronic pancreatitis (principal); F10.188 Alcohol abuse with other alcohol-induced disorder; Y90.0 Blood alcohol level of less than 20 mg/100 ml; Z98.84 Bariatric surgery status; F17.210 Nicotine dependence, cigarettes, uncomplicated; Z72.89 Other problems related to lifestyle; I10 Essential (primary) hypertension; F10.10 Alcohol abuse, uncomplicated; R07.9 Chest pain, unspecified; F14.90 Cocaine use, unspecified, uncomplicated; K76.0 Fatty (change of) liver, not elsewhere classified; K80.20 Calculus of gallbladder without cholecystitis without obstruction
CPT/HCPCS: 36415; 80053; 80061; 80320; 82150; 83690; 83735; 84484; 85025; 93005; 93306; 96360; 99283; J0360; J2270; J2405; J7030; U0002

== ENCOUNTER 2021-09-19 07:02 | Inpatient (IN) | payer SELFPAY ==
[~2021-09-19] VITALS: Ht 175.3 cm; Wt 90.7 kg
[2021-09-19] MEDS ORDERED: ONDANSETRON HCL INJ 2MG/ML 2ML 2 MG/ML VIAL IV STA (07:17)
[2021-09-19 07:30] LABS: BASOPHILS # (AUTO) 0.1 (0.0-0.1); BASOPHILS % 0.4 % (0.0-1.0); EOSINOPHILS % 0.1 % (0.0-6.0); HEMATOCRIT 46.8 % (38.2-49.6); HEMOGLOBIN 15.2 g/dL (14.0-18.0); LYMPHOCYTES # (AUTO) 1.8 (1.0-3.2); LYMPHOCYTES % 12.7 % (18.0-39.1); MEAN CORPUSCULAR HEMOGLOBIN 28.8 pg (28-32); MEAN CORPUSCULAR HGB CONC 32.5 g/dL (31-35); MEAN CORPUSCULAR VOLUME 88.6 fL (81-99); MONOCYTES # (AUTO) 0.7 (0.2-0.8); MONOCYTES % 5.3 % (4.4-11.3); NEUTROPHILS # (AUTO) 11.4 (2.1-6.9); NEUTROPHILS % 81.1 % (38.7-80.0); PLATELET COUNT 275 x10e3/uL (140-360); RED BLOOD COUNT 5.28 x10e6/uL (4.3-5.7); RED CELL DISTRIBUTION WIDTH 14.4 % (11.7-14.4)
[2021-09-19] MEDS ORDERED: Morphine 4mg INJECTION 4 MG/ML INJ IV ONE (07:30)
[2021-09-19] MEDS ORDERED: SODIUM CHLORIDE FLUSH 10 ML SYR IV PRN (07:30)
[2021-09-19] MEDS ORDERED: SODIUM CHLORIDE 0.9% 1000ML 1,000 ML IV SCH ×2 (07:30→08:45)
[2021-09-19 07:41] LABS: INR 0.88; PROTHROMBIN TIME 12.8 seconds (11.9-14.5)
[2021-09-19 07:42] LABS: CLARITY,URINE CLOUDY (CLEAR); COLOR,URINE AMBER (YELLOW); LEUKOCYTE ESTERASE ,URINE NEGATIVE (NEGATIVE); NITRITE,URINE NEGATIVE (NEGATIVE); PARTIAL THROMBOPLASTIN TIME 26.3 seconds (23.8-35.5); PROTEIN,URINE DIPSTICK 2+ (NEGATIVE)
[2021-09-19] MEDS ORDERED: SODIUM CHLORIDE 0.9% 1000ML 1,000 ML ONE (07:42)
[2021-09-19 07:43] LABS: AMPHETAMINES SCREEN,URINE NEGATIVE (NEGATIVE); BENZODIAZEPINES SCREEN,URINE NEGATIVE (NEGATIVE); KETONES,URINE 1+ (NEGATIVE); PHENCYCLIDINE SCREEN,URINE NEGATIVE (NEGATIVE); URINE UROBILINOGEN 1 mg/dL (0.2 - 1)
[2021-09-19 07:51] LABS: ALBUMIN 3.9 g/dL (3.5-5.0); ALBUMIN/GLOBULIN RATIO 1.3 (0.8-2.0); CALCIUM 8.7 mg/dL (8.4-10.2); CREATININE, SERUM 1.13 mg/dL (0.72-1.25)
[2021-09-19 07:56] LABS: BACTERIA,URINE MODERATE /HPF; EPITHELIAL CELLS,URINE MODERATE /LPF; WBC,URINE (MAN) 21-50 /HPF (0-5)
[2021-09-19] MEDS ORDERED: IOPAMIDOL 370 MG/ML 100 ML INFUS..BTL INJ ONE (08:09)
[2021-09-19] MEDS ORDERED: PROMETHAZINE 25MG/ NS 50ML (IV) IV ONE (08:45)
[2021-09-19] MEDS ORDERED: CEFTRIAXONE 1 GM VIAL IM ONE (09:00)
[2021-09-19] MEDS ORDERED: DEXTROSE 50% SYRINGE 50 ML IV PRN (09:15)
[2021-09-19] MEDS: SODIUM CHLORIDE 0.9% 1000ML 1,000 ML IV SCH ×3 (10:52→20:35)
[2021-09-19 11:30] VITALS: BP 134/94
[2021-09-19] MEDS: ONDANSETRON HCL INJ 2MG/ML 2ML 2 MG/ML VIAL IV PRN ×3 (12:55→21:46)
[2021-09-19] MEDS: Morphine 4mg INJECTION 4 MG/ML INJ IV PRN ×3 (12:55→21:46)
[2021-09-19] MEDS ORDERED: IBUPROFEN200 MG PO (14:01)
[2021-09-19 15:31] VITALS: BP 125/85
[2021-09-19 20:00] VITALS: BP 131/86
[2021-09-19 20:44] VITALS: BP 131/86
[2021-09-19 20:45] VITALS: BP 131/86
[2021-09-20] VITALS (9 sets, daily range): BP systolic 133–144; BP diastolic 78–97
[2021-09-20] MEDS: ONDANSETRON HCL INJ 2MG/ML 2ML 2 MG/ML VIAL IV PRN ×5 (02:19→20:33)
[2021-09-20] MEDS: Morphine 4mg INJECTION 4 MG/ML INJ IV PRN ×5 (02:20→20:33)
[2021-09-20] MEDS: SODIUM CHLORIDE 0.9% 1000ML 1,000 ML IV SCH ×3 (02:27→16:06)
[2021-09-20 04:58] LABS: BASOPHILS % 0.2 % (0.0-1.0); EOSINOPHILS # (AUTO) 0.1 (0.0-0.4); EOSINOPHILS % 0.9 % (0.0-6.0); HEMATOCRIT 42.3 % (38.2-49.6); HEMOGLOBIN 13.4 g/dL (14.0-18.0); LYMPHOCYTES # (AUTO) 1.1 (1.0-3.2); MEAN CORPUSCULAR HEMOGLOBIN 28.6 pg (28-32); MEAN CORPUSCULAR HGB CONC 31.7 g/dL (31-35); MEAN CORPUSCULAR VOLUME 90.4 fL (81-99); MONOCYTES # (AUTO) 0.4 (0.2-0.8); MONOCYTES % 4.3 % (4.4-11.3); NEUTROPHILS # (AUTO) 8.2 (2.1-6.9); NEUTROPHILS % 83.3 % (38.7-80.0); PLATELET COUNT 208 x10e3/uL (140-360); RED BLOOD COUNT 4.68 x10e6/uL (4.3-5.7); RED CELL DISTRIBUTION WIDTH 14.3 % (11.7-14.4)
[2021-09-20 05:16] LABS: ALBUMIN 2.9 g/dL (3.5-5.0); ALBUMIN/GLOBULIN RATIO 0.9 (0.8-2.0); CALCIUM 7.6 mg/dL (8.4-10.2); CREATININE, SERUM 0.83 mg/dL (0.72-1.25)
[2021-09-20 05:49] LABS: CHOL/HDL RATIO 2.5 (3.9-4.7)
[2021-09-21] VITALS (7 sets, daily range): BP systolic 135–151; BP diastolic 79–101
[2021-09-21] MEDS: SODIUM CHLORIDE 0.9% 1000ML 1,000 ML IV SCH ×4 (00:39→21:30)
[2021-09-21] MEDS: ONDANSETRON HCL INJ 2MG/ML 2ML 2 MG/ML VIAL IV PRN ×5 (00:39→21:58)
[2021-09-21] MEDS: Morphine 4mg INJECTION 4 MG/ML INJ IV PRN ×5 (00:45→21:58)
[2021-09-21 05:17] LABS: BASOPHILS # (AUTO) 0.1 (0.0-0.1); BASOPHILS % 0.7 % (0.0-1.0); EOSINOPHILS # (AUTO) 0.1 (0.0-0.4); EOSINOPHILS % 1.6 % (0.0-6.0); HEMATOCRIT 41.1 % (38.2-49.6); HEMOGLOBIN 13.1 g/dL (14.0-18.0); LYMPHOCYTES # (AUTO) 2.1 (1.0-3.2); LYMPHOCYTES % 24.6 % (18.0-39.1); MEAN CORPUSCULAR HEMOGLOBIN 28.5 pg (28-32); MEAN CORPUSCULAR HGB CONC 31.9 g/dL (31-35); MEAN CORPUSCULAR VOLUME 89.5 fL (81-99); MONOCYTES # (AUTO) 0.6 (0.2-0.8); MONOCYTES % 6.7 % (4.4-11.3); NEUTROPHILS # (AUTO) 5.6 (2.1-6.9); NEUTROPHILS % 65.9 % (38.7-80.0); PLATELET COUNT 206 x10e3/uL (140-360); RED BLOOD COUNT 4.59 x10e6/uL (4.3-5.7); RED CELL DISTRIBUTION WIDTH 13.6 % (11.7-14.4)
[2021-09-21 05:42] LABS: ALBUMIN 2.9 g/dL (3.5-5.0); ALBUMIN/GLOBULIN RATIO 0.8 (0.8-2.0); ANION GAP 15.7 mmol/L (8-16); CREATININE, SERUM 0.79 mg/dL (0.72-1.25); MAGNESIUM 1.4 MG/DL (1.3-2.1); POTASSIUM 3.7 mmol/L (3.5-5.1)
[2021-09-21 06:05] LABS: AMYLASE 126 U/L (25-125); LIPASE 225 U/L (8-78)
[2021-09-21] MEDS: NICOTINE 14 MG/EA PATCH TOP SCH (10:00)
[2021-09-21] MEDS: SIMETHICONE 80 MG CHEW PO PRN (16:54)
[2021-09-22] VITALS: BP 136/90
[2021-09-22] MEDS: Morphine 4mg INJECTION 4 MG/ML INJ IV PRN ×2 (01:30→09:11)
[2021-09-22] MEDS: ONDANSETRON HCL INJ 2MG/ML 2ML 2 MG/ML VIAL IV PRN ×2 (01:30→09:10)
[2021-09-22 04:00] VITALS: BP 132/95
[2021-09-22] MEDS: SODIUM CHLORIDE 0.9% 1000ML 1,000 ML IV SCH (05:35)
[2021-09-22 06:38] LABS: BASOPHILS % 0.4 % (0.0-1.0); EOSINOPHILS # (AUTO) 0.2 (0.0-0.4); EOSINOPHILS % 2.1 % (0.0-6.0); HEMATOCRIT 40.5 % (38.2-49.6); HEMOGLOBIN 13.1 g/dL (14.0-18.0); LYMPHOCYTES # (AUTO) 1.5 (1.0-3.2); MEAN CORPUSCULAR HEMOGLOBIN 28.6 pg (28-32); MEAN CORPUSCULAR HGB CONC 32.3 g/dL (31-35); MEAN CORPUSCULAR VOLUME 88.4 fL (81-99); MONOCYTES # (AUTO) 0.5 (0.2-0.8); MONOCYTES % 7.3 % (4.4-11.3); NEUTROPHILS # (AUTO) 4.8 (2.1-6.9); NEUTROPHILS % 68.9 % (38.7-80.0); PLATELET COUNT 222 x10e3/uL (140-360); RED BLOOD COUNT 4.58 x10e6/uL (4.3-5.7); RED CELL DISTRIBUTION WIDTH 13.7 % (11.7-14.4)
[2021-09-22 07:23] LABS: ALANINE AMINOTRANSFERASE 14 IU/L (0-55); ALBUMIN/GLOBULIN RATIO 0.9 (0.8-2.0); ALKALINE PHOSPHATASE 73 IU/L (40-150); ANION GAP 14.6 mmol/L (8-16); BLOOD UREA NITROGEN < 5 mg/dL (7-26); CALCIUM 8.1 mg/dL (8.4-10.2); CARBON DIOXIDE 27 mmol/L (22-29); CHLORIDE 102 mmol/L (98-107); CREATININE, SERUM 0.79 mg/dL (0.72-1.25); GLUCOSE 151 mg/dL (74-118); MAGNESIUM 1.4 MG/DL (1.3-2.1); POTASSIUM 3.6 mmol/L (3.5-5.1); SODIUM 140 mmol/L (136-145)
[2021-09-22 07:24] LABS: AMYLASE 84 U/L (25-125); LIPASE 226 U/L (8-78)
[2021-09-22 07:28] LABS: BUN/CREATININE RATIO 6 (6-25)
[2021-09-22 08:23] VITALS: BP 137/96
[2021-09-22] MEDS: SIMETHICONE 80 MG CHEW PO PRN (09:10)
[2021-09-22] MEDS: NICOTINE 14 MG/EA PATCH TOP SCH (09:10)
[2021-09-22 09:17] VITALS: BP 137/96
[2021-09-22] MEDS ORDERED: TRAMADOL HCL 50 MG TAB PO PRN (10:15)
[2021-09-22 12:05] VITALS: BP 139/94
[2021-09-22] MEDS ORDERED: ONDANSETRON ODT8 MG PO (12:13)
[2021-09-22] MEDS ORDERED: OMEPRAZOLE40 MG PO (12:14)
[2021-09-22] MEDS ORDERED: ULTRAM 50MG50 MG PO (12:15)
[2021-09-22] MEDS ORDERED: NICOTINE PATCH1 EAC1 TP (12:16)
== END 2021-09-22 14:00 | disposition home or self-care (01) | DRG 439 ==
LOC: ER 07:10 → ERHOLD 09:21 → MED/SURG 11:01
PROVIDERS: ADMIT Internal Medicine; ATTEND Internal Medicine
DX: K85.20 Alcohol induced acute pancreatitis without necrosis or infection (principal); N39.0 Urinary tract infection, site not specified; E11.65 Type 2 diabetes mellitus with hyperglycemia; F17.200 Nicotine dependence, unspecified, uncomplicated; K83.9 Disease of biliary tract, unspecified; Z20.822 Contact with and (suspected) exposure to COVID-19; Z98.84 Bariatric surgery status; I10 Essential (primary) hypertension; N28.9 Disorder of kidney and ureter, unspecified; F10.20 Alcohol dependence, uncomplicated; K80.20 Calculus of gallbladder without cholecystitis without obstruction; D18.09 Hemangioma of other sites; M51.37 Other intervertebral disc degeneration, lumbosacral region
CPT/HCPCS: 36415; 74177; 74181; 80053; 80061; 80307; 81001; 82150; 82977; 83036; 83525; 83690; 83735; 84681; 85025; 85610; 85730; 87086; 99284; J0696; J2270; J2405; J2550; J7030; Q9967

== ENCOUNTER 2024-01-22 14:15 | Inpatient (IN) | payer SELFPAY ==
[~2024-01-22] VITALS: Ht 175.3 cm; Wt 90.7 kg
[~2024-01-22 14:15] MED LIST changes: +IBUPROFEN200 MG PO; +NICOTINE PATCH1 EAC1 TP; +OMEPRAZOLE40 MG PO; +ONDANSETRON ODT8 MG PO; +ULTRAM 50MG50 MG PO
[2024-01-22 15:15] VITALS: TEMP 97.3
[2024-01-22] MEDS: SODIUM CHLORIDE 0.9% 1000ML 1,000 ML IV ONE (15:40)
[2024-01-22] MEDS: ONDANSETRON HCL INJ 2MG/ML 2ML 2 MG/ML VIAL IV STA ×2 (15:42→17:43)
[2024-01-22 15:57] LABS: BASOPHILS % 0.3 % (0.0-1.0); HEMATOCRIT 42.5 % (38.2-49.6); HEMOGLOBIN 13.3 g/dL (14.0-18.0); LYMPHOCYTES # (AUTO) 0.8 (1.0-3.2); LYMPHOCYTES % 4.9 % (18.0-39.1); MEAN CORPUSCULAR HEMOGLOBIN 25.7 pg (28-32); MEAN CORPUSCULAR HGB CONC 31.3 g/dL (31-35); MEAN CORPUSCULAR VOLUME 82.2 fL (81-99); MONOCYTES # (AUTO) 0.9 (0.2-0.8); MONOCYTES % 5.6 % (4.4-11.3); NEUTROPHILS % 88.6 % (38.7-80.0); PLATELET COUNT 248 x10e3/uL (140-360); RED BLOOD COUNT 5.17 x10e6/uL (4.3-5.7); RED CELL DISTRIBUTION WIDTH 17.2 % (11.7-14.4); WHITE BLOOD COUNT 15.76 x10e3/uL (4.8-10.8)
[2024-01-22 16:02] LABS: INR 1.01; PROTHROMBIN TIME 13.8 seconds (11.9-14.5)
[2024-01-22 16:03] LABS: PARTIAL THROMBOPLASTIN TIME 26.3 seconds (23.8-35.5)
[2024-01-22 16:09] LABS: ALBUMIN 3.9 g/dL (3.5-5.0); ALBUMIN/GLOBULIN RATIO 0.9 (0.8-2.0); ANION GAP 17.2 mmol/L (8-16); BILIRUBIN,TOTAL 1.3 mg/dL (0.2-1.2); CALCIUM 9.5 mg/dL (8.4-10.2); CREATININE, SERUM 0.84 mg/dL (0.72-1.25); POTASSIUM 4.2 mmol/L (3.5-5.1); TOTAL PROTEIN 8.1 g/dL (6.5-8.1)
[2024-01-22 16:17] LABS: AMPHETAMINES SCREEN,URINE NEGATIVE (NEGATIVE); BENZODIAZEPINES SCREEN,URINE NEGATIVE (NEGATIVE); BILIRUBIN,URINE MODERATE (NEGATIVE); CANNABINOIDS SCREEN,URINE NEGATIVE (NEGATIVE); CLARITY,URINE SL CLOUDY (CLEAR); COCAINE SCREEN,URINE NEGATIVE (NEGATIVE); COLOR,URINE ORANGE (YELLOW); GLUCOSE, URINE 1+ (NEGATIVE); KETONES,URINE 2+ (NEGATIVE); LEUKOCYTE ESTERASE ,URINE NEGATIVE (NEGATIVE); METHADONE SCREEN, URINE NEGATIVE (NEGATIVE); NITRITE,URINE POSITIVE (NEGATIVE); OPIATES SCREEN,URINE POSITIVE (NEGATIVE); PH,URINE 6 (5 - 7); PHENCYCLIDINE SCREEN,URINE NEGATIVE (NEGATIVE); PROTEIN,URINE DIPSTICK 2+ (NEGATIVE); URINE UROBILINOGEN 4 mg/dL (0.2 - 1)
[2024-01-22] MEDS ORDERED: IOPAMIDOL 370 MG/ML 100 ML INFUS..BTL INJ ONE (16:28)
[2024-01-22 16:30] LABS: BACTERIA,URINE MODERATE /HPF; MUCUS,URINE MODERATE (RARE); WBC,URINE (MAN) 0-5 /HPF (0-5)
[2024-01-22] MEDS: HYDROMORPHONE 1MG/1ML INJ IV STA (17:44)
[2024-01-22 18:10] LABS: CHOL/HDL RATIO 1.6 (3.9-4.7)
[2024-01-22 20:10] VITALS: PULSE 72; RESP 16; O2SAT 100
[2024-01-22 20:29] VITALS: PULSE 88; RESP 16
[2024-01-22 21:21] VITALS: BP 153/91; PULSE 88; RESP 18; TEMP 99.9; O2SAT 98
[2024-01-22] MEDS: ONDANSETRON HCL INJ 2MG/ML 2ML 2 MG/ML VIAL IV PRN (22:01)
[2024-01-22] MEDS: HYDROMORPHONE 1MG/1ML INJ IV PRN (22:02)
[2024-01-22] MEDS: SODIUM CHLORIDE 0.9% 1000ML 1,000 ML IV SCH (22:02)
[2024-01-22 23:16] VITALS: BP 153/91; PULSE 88; RESP 18; TEMP 99.9; O2SAT 98
[2024-01-23] VITALS (9 sets, daily range): BP systolic 135–153; BP diastolic 85–96; PULSE 74–94; RESP 14–21; TEMP 98.1–100.1; O2SAT 96–100
[2024-01-23 05:59] LABS: BASOPHILS % 0.1 % (0.0-1.0); HEMATOCRIT 38.4 % (38.2-49.6); HEMOGLOBIN 11.8 g/dL (14.0-18.0); LYMPHOCYTES # (AUTO) 0.8 (1.0-3.2); LYMPHOCYTES % 5.1 % (18.0-39.1); MEAN CORPUSCULAR HEMOGLOBIN 25.4 pg (28-32); MEAN CORPUSCULAR HGB CONC 30.7 g/dL (31-35); MEAN CORPUSCULAR VOLUME 82.8 fL (81-99); MONOCYTES # (AUTO) 0.7 (0.2-0.8); MONOCYTES % 4.2 % (4.4-11.3); NEUTROPHILS # (AUTO) 14.2 (2.1-6.9); NEUTROPHILS % 87.9 % (38.7-80.0); PLATELET COUNT 205 x10e3/uL (140-360); RED BLOOD COUNT 4.64 x10e6/uL (4.3-5.7); RED CELL DISTRIBUTION WIDTH 17.2 % (11.7-14.4); WHITE BLOOD COUNT 16.15 x10e3/uL (4.8-10.8)
[2024-01-23 06:46] LABS: ALBUMIN 3.3 g/dL (3.5-5.0); ALBUMIN/GLOBULIN RATIO 0.9 (0.8-2.0); ANION GAP 16.8 mmol/L (8-16); BILIRUBIN,TOTAL 1.2 mg/dL (0.2-1.2); CALCIUM 8.5 mg/dL (8.4-10.2); CREATININE, SERUM 0.79 mg/dL (0.72-1.25); POTASSIUM 3.8 mmol/L (3.5-5.1); TOTAL PROTEIN 6.9 g/dL (6.5-8.1)
[2024-01-23 07:32] LABS: TROPONIN I 0.009 ng/mL (0-0.300)
[2024-01-23 07:51] LABS: TROPONIN I 0.022 ng/mL (0-0.300)
[2024-01-23 13:22] LABS: TROPONIN I 0.004 ng/mL (0-0.300)
[2024-01-24] VITALS (8 sets, daily range): BP systolic 129–154; BP diastolic 90–98; PULSE 60–77; RESP 18–20; TEMP 98.2–98.8; O2SAT 97–100
[2024-01-24 06:45] LABS: BASOPHILS % 0.4 % (0.0-1.0); EOSINOPHILS # (AUTO) 0.1 (0.0-0.4); EOSINOPHILS % 0.7 % (0.0-6.0); HEMATOCRIT 36.4 % (38.2-49.6); HEMOGLOBIN 11.2 g/dL (14.0-18.0); LYMPHOCYTES # (AUTO) 1.2 (1.0-3.2); LYMPHOCYTES % 14.9 % (18.0-39.1); MEAN CORPUSCULAR HEMOGLOBIN 26.1 pg (28-32); MEAN CORPUSCULAR HGB CONC 30.8 g/dL (31-35); MEAN CORPUSCULAR VOLUME 84.8 fL (81-99); MONOCYTES # (AUTO) 0.8 (0.2-0.8); MONOCYTES % 9.8 % (4.4-11.3); NEUTROPHILS # (AUTO) 5.9 (2.1-6.9); NEUTROPHILS % 73.8 % (38.7-80.0); PLATELET COUNT 199 x10e3/uL (140-360); RED BLOOD COUNT 4.29 x10e6/uL (4.3-5.7); RED CELL DISTRIBUTION WIDTH 17.5 % (11.7-14.4); WHITE BLOOD COUNT 8.05 x10e3/uL (4.8-10.8)
[2024-01-24 07:25] LABS: ALBUMIN 3.1 g/dL (3.5-5.0); ALBUMIN/GLOBULIN RATIO 0.8 (0.8-2.0); ANION GAP 16.6 mmol/L (8-16); BILIRUBIN,TOTAL 0.7 mg/dL (0.2-1.2); CALCIUM 8.8 mg/dL (8.4-10.2); CREATININE, SERUM 0.8 mg/dL (0.72-1.25); POTASSIUM 3.6 mmol/L (3.5-5.1); TOTAL PROTEIN 6.8 g/dL (6.5-8.1)
[2024-01-25] VITALS (9 sets, daily range): BP systolic 140–164; BP diastolic 87–100; PULSE 61–95; RESP 18–21; TEMP 98–98.6; O2SAT 99–100
[2024-01-25 06:09] LABS: BASOPHILS % 0.3 % (0.0-1.0); EOSINOPHILS # (AUTO) 0.1 (0.0-0.4); EOSINOPHILS % 0.7 % (0.0-6.0); HEMATOCRIT 39.7 % (38.2-49.6); HEMOGLOBIN 12.3 g/dL (14.0-18.0); LYMPHOCYTES # (AUTO) 1.3 (1.0-3.2); MEAN CORPUSCULAR HEMOGLOBIN 26.1 pg (28-32); MEAN CORPUSCULAR VOLUME 84.3 fL (81-99); MONOCYTES # (AUTO) 0.7 (0.2-0.8); MONOCYTES % 9.6 % (4.4-11.3); NEUTROPHILS # (AUTO) 4.9 (2.1-6.9); NEUTROPHILS % 70.1 % (38.7-80.0); PLATELET COUNT 229 x10e3/uL (140-360); RED BLOOD COUNT 4.71 x10e6/uL (4.3-5.7); RED CELL DISTRIBUTION WIDTH 17.4 % (11.7-14.4); WHITE BLOOD COUNT 7.05 x10e3/uL (4.8-10.8)
[2024-01-25 06:28] LABS: ALBUMIN 3.5 g/dL (3.5-5.0); ANION GAP 17.5 mmol/L (8-16); BILIRUBIN,TOTAL 0.6 mg/dL (0.2-1.2); CREATININE, SERUM 0.74 mg/dL (0.72-1.25); POTASSIUM 3.5 mmol/L (3.5-5.1)
[2024-01-25 06:50] LABS: AMYLASE 100 U/L (25-125); LIPASE 415 U/L (8-78)
[2024-01-25] MEDS: HYDROCODONE/APAP 5MG-325MG TAB PO PRN (18:16)
[2024-01-26] VITALS (7 sets, daily range): BP systolic 140–156; BP diastolic 91–102; PULSE 57–66; RESP 16–18; TEMP 98.1–98.7; O2SAT 98–100
[2024-01-26] MEDS: SUCRALFATE 1 GM TAB PO SCH (00:50)
[2024-01-26] MEDS: MAGNESIUM/ALUMINUM/SIMETHICONE 30 ML UDC PO ONE (00:52)
[2024-01-26] MEDS: BELLADONNA ALK/PHENOBARBITAL 5 ML UDC PO ONE (00:52)
[2024-01-26] MEDS: LIDOCAINE VISC 2% SOLN 15 ML UDC PO ONE (00:53)
[2024-01-26 06:45] LABS: BASOPHILS % 0.3 % (0.0-1.0); EOSINOPHILS # (AUTO) 0.1 (0.0-0.4); EOSINOPHILS % 0.9 % (0.0-6.0); HEMATOCRIT 36.3 % (38.2-49.6); HEMOGLOBIN 11.2 g/dL (14.0-18.0); LYMPHOCYTES # (AUTO) 1.5 (1.0-3.2); LYMPHOCYTES % 24.9 % (18.0-39.1); MEAN CORPUSCULAR HEMOGLOBIN 25.9 pg (28-32); MEAN CORPUSCULAR HGB CONC 30.9 g/dL (31-35); MONOCYTES # (AUTO) 0.7 (0.2-0.8); MONOCYTES % 11.5 % (4.4-11.3); NEUTROPHILS # (AUTO) 3.6 (2.1-6.9); NEUTROPHILS % 62.2 % (38.7-80.0); PLATELET COUNT 252 x10e3/uL (140-360); RED BLOOD COUNT 4.32 x10e6/uL (4.3-5.7); RED CELL DISTRIBUTION WIDTH 17.3 % (11.7-14.4); WHITE BLOOD COUNT 5.83 x10e3/uL (4.8-10.8)
[2024-01-26 07:05] LABS: ALANINE AMINOTRANSFERASE 45 IU/L (0-55); ALKALINE PHOSPHATASE 90 IU/L (40-150); ANION GAP 13.4 mmol/L (8-16); BILIRUBIN,TOTAL 0.4 mg/dL (0.2-1.2); BLOOD UREA NITROGEN < 5 mg/dL (7-26); CALCIUM 8.6 mg/dL (8.4-10.2); CARBON DIOXIDE 24 mmol/L (22-29); CHLORIDE 101 mmol/L (98-107); CREATININE, SERUM 0.82 mg/dL (0.72-1.25); EST GLOMERULAR FILTRATION RATE 112 ML/MIN (>=60); GLUCOSE 169 mg/dL (74-118); LIPASE 386 U/L (8-78); SODIUM 135 mmol/L (136-145); TOTAL PROTEIN 6.1 g/dL (6.5-8.1)
[2024-01-26 07:06] LABS: BUN/CREATININE RATIO 6 (6-25); POTASSIUM 3.4 mmol/L (3.5-5.1)
[2024-01-27] VITALS: BP 134/95; PULSE 65; RESP 17; TEMP 97.7; O2SAT 100
[2024-01-27 04:00] VITALS: BP 147/94; PULSE 56; RESP 20; TEMP 97.8; O2SAT 100
[2024-01-27 07:48] VITALS: BP 141/92; PULSE 55; RESP 17; TEMP 98.2; O2SAT 100
[2024-01-27 11:53] VITALS: BP 132/94; PULSE 74; RESP 17; TEMP 98.5; O2SAT 99
[2024-01-27 17:59] VITALS: BP 142/95; PULSE 62; RESP 17; TEMP 98.4; O2SAT 98
== END 2024-01-27 18:24 | disposition home health service (06) | DRG 440 ==
LOC: ER 16:20 → ERHOLD 18:19 → MED/SURG3 21:04
PROVIDERS: ADMIT Internal Medicine; ATTEND Internal Medicine
DX: K85.20 Alcohol induced acute pancreatitis without necrosis or infection (principal); K86.0 Alcohol-induced chronic pancreatitis; K80.20 Calculus of gallbladder without cholecystitis without obstruction; I10 Essential (primary) hypertension; R73.9 Hyperglycemia, unspecified; K70.0 Alcoholic fatty liver; F10.10 Alcohol abuse, uncomplicated; E66.9 Obesity, unspecified; Z68.29 Body mass index [BMI] 29.0-29.9, adult; Z98.84 Bariatric surgery status; F17.210 Nicotine dependence, cigarettes, uncomplicated
CPT/HCPCS: 36415; 74177; 74181; 80053; 80061; 80307; 81001; 82150; 82550; 83690; 84484; 85025; 85610; 85730; 94760; 94799; 99284; J1171; J2405; J2470; J2543; J7030; Q9967

== ENCOUNTER 2024-08-30 19:05 | Inpatient (IN) | payer SELFPAY ==
[~2024-08-30] VITALS: Ht 175.3 cm; Wt 93.0 kg
[2024-08-30 19:51] VITALS: PULSE 80; RESP 20; TEMP 98.3
[2024-08-30] MEDS: Morphine 4mg INJECTION 4 MG/ML INJ IV ONE (20:16)
[2024-08-30] MEDS: ONDANSETRON HCL INJ 2MG/ML 2ML 2 MG/ML VIAL IV STA (20:16)
[2024-08-30] MEDS: SODIUM CHLORIDE 0.9% 1000ML 1,000 ML IV ONE (20:16)
[2024-08-30 20:35] LABS: BASOPHILS % 0.3 % (0.0-1.0); HEMATOCRIT 38.7 % (38.2-49.6); HEMOGLOBIN 12.6 g/dL (14.0-18.0); LYMPHOCYTES # (AUTO) 1.7 (1.0-3.2); LYMPHOCYTES % 11.6 % (18.0-39.1); MEAN CORPUSCULAR HEMOGLOBIN 26.9 pg (28-32); MEAN CORPUSCULAR HGB CONC 32.6 g/dL (31-35); MEAN CORPUSCULAR VOLUME 82.5 fL (81-99); MONOCYTES # (AUTO) 0.5 (0.2-0.8); MONOCYTES % 3.4 % (4.4-11.3); NEUTROPHILS # (AUTO) 12.2 (2.1-6.9); NEUTROPHILS % 84.2 % (38.7-80.0); PLATELET COUNT 393 x10e3/uL (140-360); RED BLOOD COUNT 4.69 x10e6/uL (4.3-5.7); RED CELL DISTRIBUTION WIDTH 18.7 % (11.7-14.4); WHITE BLOOD COUNT 14.51 x10e3/uL (4.8-10.8)
[2024-08-30 20:58] LABS: ALBUMIN 3.8 g/dL (3.5-5.0); ALBUMIN/GLOBULIN RATIO 1.2 (0.8-2.0); ANION GAP 19.1 mmol/L (8-16); BILIRUBIN,TOTAL 0.3 mg/dL (0.2-1.2); CALCIUM 8.1 mg/dL (8.4-10.2); CREATININE, SERUM 0.95 mg/dL (0.72-1.25); POTASSIUM 4.1 mmol/L (3.5-5.1); TOTAL PROTEIN 6.9 g/dL (6.5-8.1)
[2024-08-30 21:01] LABS: LIPASE 479 U/L (8-78)
[2024-08-30 21:10] LABS: TROPONIN I < 0.001 ng/mL (0-0.300)
[2024-08-30] MEDS: ACETAMINOPHEN 325 MG TAB PO ONE (21:41)
[2024-08-30] MEDS ORDERED: HYDRALAZINE HCL 20 MG/ML VIAL IV PRN (22:15)
[2024-08-30 22:36] VITALS: PULSE 83; RESP 18; O2SAT 99
[2024-08-30] MEDS: HYDROMORPHONE 1MG/1ML INJ IV PRN (23:27)
[2024-08-30] MEDS: SODIUM CHLORIDE 0.9% 1000ML 1,000 ML IV SCH (23:27)
[2024-08-30] MEDS: ONDANSETRON HCL INJ 2MG/ML 2ML 2 MG/ML VIAL IV PRN (23:27)
[2024-08-30 23:43] VITALS: BP 158/92; PULSE 83; RESP 18; O2SAT 99
[2024-08-31] VITALS (10 sets, daily range): BP systolic 123–153; BP diastolic 69–98; PULSE 74–100; RESP 18–20; TEMP 97.8–99.5; O2SAT 96–99
[2024-08-31 06:13] LABS: ALBUMIN 3.2 g/dL (3.5-5.0); ALBUMIN/GLOBULIN RATIO 1.2 (0.8-2.0); ANION GAP 14.8 mmol/L (8-16); BILIRUBIN,TOTAL 0.9 mg/dL (0.2-1.2); CALCIUM 7.6 mg/dL (8.4-10.2); CREATININE, SERUM 0.77 mg/dL (0.72-1.25); POTASSIUM 3.8 mmol/L (3.5-5.1); TOTAL PROTEIN 5.8 g/dL (6.5-8.1)
[2024-08-31] MEDS: ONDANSETRON HCL INJ 2MG/ML 2ML 2 MG/ML VIAL IV STA (06:20)
[2024-08-31] MEDS: HYDROMORPHONE 1MG/1ML INJ IV ONE (06:21)
[2024-08-31] MEDS ORDERED: LORAZEPAM INJ 2 MG/ML VIAL IV PRN (07:00)
[2024-08-31] MEDS: HYDROMORPHONE 1MG/1ML INJ IV PRN (09:13)
[2024-08-31] MEDS: LORAZEPAM INJ 2 MG/ML VIAL IV SCH (12:09)
[2024-08-31] MEDS: MULTIVITAMINS- 12 INJECTION 10 ML, FOLIC ACID MDV 1 MG, THIAMINE HCL INJ 100 MG in SODI... IV SCH (15:02)
[2024-09-01] VITALS (7 sets, daily range): BP systolic 126–143; BP diastolic 79–96; PULSE 75–88; RESP 18–21; TEMP 97.9–98.9; O2SAT 97–99
[2024-09-01] MEDS: LORAZEPAM INJ 2 MG/ML VIAL IV PRN (03:09)
[2024-09-01 06:53] LABS: BASOPHILS # (AUTO) 0.1 (0.0-0.1); BASOPHILS % 0.4 % (0.0-1.0); EOSINOPHILS % 0.2 % (0.0-6.0); HEMOGLOBIN 10.6 g/dL (14.0-18.0); LYMPHOCYTES # (AUTO) 1.1 (1.0-3.2); LYMPHOCYTES % 8.9 % (18.0-39.1); MEAN CORPUSCULAR HEMOGLOBIN 26.7 pg (28-32); MEAN CORPUSCULAR HGB CONC 32.1 g/dL (31-35); MEAN CORPUSCULAR VOLUME 83.1 fL (81-99); MONOCYTES # (AUTO) 0.7 (0.2-0.8); MONOCYTES % 5.3 % (4.4-11.3); NEUTROPHILS # (AUTO) 10.9 (2.1-6.9); NEUTROPHILS % 84.7 % (38.7-80.0); PLATELET COUNT 258 x10e3/uL (140-360); RED BLOOD COUNT 3.97 x10e6/uL (4.3-5.7); RED CELL DISTRIBUTION WIDTH 18.9 % (11.7-14.4); WHITE BLOOD COUNT 12.83 x10e3/uL (4.8-10.8)
[2024-09-01 07:14] LABS: CHOL/HDL RATIO 1.7 (3.9-4.7)
[2024-09-01 07:18] LABS: ALBUMIN 2.7 g/dL (3.5-5.0); ANION GAP 11.6 mmol/L (8-16); BILIRUBIN,TOTAL 0.8 mg/dL (0.2-1.2); CALCIUM 7.8 mg/dL (8.4-10.2); CREATININE, SERUM 0.7 mg/dL (0.72-1.25); POTASSIUM 3.6 mmol/L (3.5-5.1); TOTAL PROTEIN 5.4 g/dL (6.5-8.1)
[2024-09-01] MEDS: MULTIVITAMINS- 12 INJECTION 10 ML, FOLIC ACID MDV 1 MG, THIAMINE HCL INJ 100 MG in SODI... IV SCH (14:39)
[2024-09-02] VITALS (8 sets, daily range): BP systolic 134–148; BP diastolic 87–97; PULSE 64–86; RESP 18–20; TEMP 97.8–99; O2SAT 96–97
[2024-09-02 09:07] LABS: BASOPHILS % 0.3 % (0.0-1.0); EOSINOPHILS % 0.3 % (0.0-6.0); HEMATOCRIT 31.1 % (38.2-49.6); HEMOGLOBIN 10.1 g/dL (14.0-18.0); MEAN CORPUSCULAR HEMOGLOBIN 26.9 pg (28-32); MEAN CORPUSCULAR HGB CONC 32.5 g/dL (31-35); MEAN CORPUSCULAR VOLUME 82.9 fL (81-99); MONOCYTES # (AUTO) 0.5 (0.2-0.8); MONOCYTES % 5.9 % (4.4-11.3); NEUTROPHILS % 81.2 % (38.7-80.0); PLATELET COUNT 221 x10e3/uL (140-360); RED BLOOD COUNT 3.75 x10e6/uL (4.3-5.7); RED CELL DISTRIBUTION WIDTH 18.2 % (11.7-14.4); WHITE BLOOD COUNT 8.66 x10e3/uL (4.8-10.8)
[2024-09-02 09:27] LABS: ANION GAP 15.3 mmol/L (8-16); CALCIUM 8.2 mg/dL (8.4-10.2); CREATININE, SERUM 0.71 mg/dL (0.72-1.25)
[2024-09-02 09:28] LABS: POTASSIUM 3.3 mmol/L (3.5-5.1)
[2024-09-03] VITALS (7 sets, daily range): BP systolic 135–156; BP diastolic 90–96; PULSE 58–81; RESP 18–20; TEMP 97.8–98.9; O2SAT 97–99
[2024-09-03] MEDS: HYDROMORPHONE 1MG/1ML INJ IV PRN (23:21)
[2024-09-03] MEDS: SODIUM CHLORIDE 0.9% 1000ML 1,000 ML IV SCH (23:22)
[2024-09-04] VITALS (7 sets, daily range): BP systolic 118–144; BP diastolic 86–101; PULSE 57–67; RESP 18–20; TEMP 98–98.4; O2SAT 97–100
[2024-09-04 05:05] LABS: BASOPHILS % 0.3 % (0.0-1.0); EOSINOPHILS # (AUTO) 0.1 (0.0-0.4); EOSINOPHILS % 0.7 % (0.0-6.0); HEMATOCRIT 32.7 % (38.2-49.6); HEMOGLOBIN 10.4 g/dL (14.0-18.0); LYMPHOCYTES # (AUTO) 1.4 (1.0-3.2); LYMPHOCYTES % 19.2 % (18.0-39.1); MEAN CORPUSCULAR HEMOGLOBIN 27.2 pg (28-32); MEAN CORPUSCULAR HGB CONC 31.8 g/dL (31-35); MEAN CORPUSCULAR VOLUME 85.4 fL (81-99); MONOCYTES # (AUTO) 0.8 (0.2-0.8); NEUTROPHILS # (AUTO) 5.2 (2.1-6.9); NEUTROPHILS % 69.4 % (38.7-80.0); PLATELET COUNT 249 x10e3/uL (140-360); RED BLOOD COUNT 3.83 x10e6/uL (4.3-5.7); RED CELL DISTRIBUTION WIDTH 18.4 % (11.7-14.4); WHITE BLOOD COUNT 7.49 x10e3/uL (4.8-10.8)
[2024-09-04 05:39] LABS: ALANINE AMINOTRANSFERASE 10 IU/L (0-55); ALBUMIN/GLOBULIN RATIO 0.9 (0.8-2.0); ALKALINE PHOSPHATASE 93 IU/L (40-150); ANION GAP 14.2 mmol/L (8-16); BILIRUBIN,TOTAL 0.4 mg/dL (0.2-1.2); CALCIUM 8.6 mg/dL (8.4-10.2); CARBON DIOXIDE 26 mmol/L (22-29); CHLORIDE 99 mmol/L (98-107); GLUCOSE 169 mg/dL (74-118); LIPASE 321 U/L (8-78); SODIUM 136 mmol/L (136-145); TOTAL PROTEIN 6.2 g/dL (6.5-8.1)
[2024-09-04 05:48] LABS: POTASSIUM 3.2 mmol/L (3.5-5.1)
[2024-09-04 06:09] LABS: BLOOD UREA NITROGEN < 5 mg/dL (7-26); BUN/CREATININE RATIO 6 (6-25); CREATININE, SERUM 0.78 mg/dL (0.72-1.25); EST GLOMERULAR FILTRATION RATE 113 ML/MIN (>=60)
[2024-09-04] MEDS ORDERED: IOPAMIDOL 370 MG/ML 100 ML INFUS..BTL INJ ONE (12:39)
[2024-09-04] MEDS: HYDROMORPHONE 1MG/1ML INJ IV PRN (12:58)
[2024-09-04] MEDS: ENOXAPARIN SOD INJ 40 MG/0.4 ML SYR SC SCH (17:55)
[2024-09-05] VITALS (7 sets, daily range): BP systolic 120–144; BP diastolic 85–99; PULSE 58–67; RESP 18; TEMP 97.8–98.3; O2SAT 96–99
[2024-09-05 08:23] LABS: BASOPHILS % 0.5 % (0.0-1.0); EOSINOPHILS % 0.6 % (0.0-6.0); HEMATOCRIT 38.7 % (38.2-49.6); HEMOGLOBIN 12.2 g/dL (14.0-18.0); LYMPHOCYTES % 30.7 % (18.0-39.1); MEAN CORPUSCULAR HEMOGLOBIN 26.8 pg (28-32); MEAN CORPUSCULAR HGB CONC 31.5 g/dL (31-35); MEAN CORPUSCULAR VOLUME 84.9 fL (81-99); MONOCYTES # (AUTO) 0.6 (0.2-0.8); MONOCYTES % 9.4 % (4.4-11.3); NEUTROPHILS # (AUTO) 3.9 (2.1-6.9); NEUTROPHILS % 58.5 % (38.7-80.0); PLATELET COUNT 298 x10e3/uL (140-360); RED BLOOD COUNT 4.56 x10e6/uL (4.3-5.7); RED CELL DISTRIBUTION WIDTH 18.8 % (11.7-14.4); WHITE BLOOD COUNT 6.58 x10e3/uL (4.8-10.8)
[2024-09-05 08:56] LABS: ALANINE AMINOTRANSFERASE 13 IU/L (0-55); ALBUMIN 3.3 g/dL (3.5-5.0); ALBUMIN/GLOBULIN RATIO 0.9 (0.8-2.0); ALKALINE PHOSPHATASE 97 IU/L (40-150); ANION GAP 17.2 mmol/L (8-16); BILIRUBIN,TOTAL 0.4 mg/dL (0.2-1.2); BLOOD UREA NITROGEN < 5 mg/dL (7-26); CARBON DIOXIDE 24 mmol/L (22-29); CHLORIDE 100 mmol/L (98-107); EST GLOMERULAR FILTRATION RATE 113 ML/MIN (>=60); GLUCOSE 153 mg/dL (74-118); SODIUM 138 mmol/L (136-145)
[2024-09-05 09:03] LABS: BUN/CREATININE RATIO 6 (6-25); POTASSIUM 3.2 mmol/L (3.5-5.1)
[2024-09-05] MEDS: POTASSIUM CHLORIDE 20 MEQ TAB CR PO ONE (14:27)
[2024-09-05] MEDS: LACTULOSE SYRUP 20 GM/30 ML UDC PO PRN (14:29)
[2024-09-06] VITALS: BP 137/97; PULSE 77; RESP 18; TEMP 98.1; O2SAT 98
[2024-09-06 04:00] VITALS: BP 137/98; PULSE 69; RESP 18; TEMP 97.8; O2SAT 97
[2024-09-06 05:39] LABS: BASOPHILS % 0.4 % (0.0-1.0); EOSINOPHILS # (AUTO) 0.1 (0.0-0.4); EOSINOPHILS % 1.3 % (0.0-6.0); HEMOGLOBIN 10.3 g/dL (14.0-18.0); LYMPHOCYTES # (AUTO) 1.8 (1.0-3.2); LYMPHOCYTES % 25.6 % (18.0-39.1); MEAN CORPUSCULAR HEMOGLOBIN 26.6 pg (28-32); MEAN CORPUSCULAR HGB CONC 31.2 g/dL (31-35); MEAN CORPUSCULAR VOLUME 85.3 fL (81-99); MONOCYTES # (AUTO) 0.7 (0.2-0.8); MONOCYTES % 9.3 % (4.4-11.3); NEUTROPHILS # (AUTO) 4.5 (2.1-6.9); NEUTROPHILS % 63.1 % (38.7-80.0); PLATELET COUNT 250 x10e3/uL (140-360); RED BLOOD COUNT 3.87 x10e6/uL (4.3-5.7); RED CELL DISTRIBUTION WIDTH 18.8 % (11.7-14.4); WHITE BLOOD COUNT 7.19 x10e3/uL (4.8-10.8)
[2024-09-06 06:10] LABS: ANION GAP 11.9 mmol/L (8-16); BLOOD UREA NITROGEN < 5 mg/dL (7-26); CALCIUM 8.2 mg/dL (8.4-10.2); CARBON DIOXIDE 26 mmol/L (22-29); CHLORIDE 104 mmol/L (98-107); CREATININE, SERUM 0.77 mg/dL (0.72-1.25); EST GLOMERULAR FILTRATION RATE 114 ML/MIN (>=60); GLUCOSE 170 mg/dL (74-118); LIPASE 307 U/L (8-78); POTASSIUM 3.9 mmol/L (3.5-5.1); SODIUM 138 mmol/L (136-145)
[2024-09-06 06:18] LABS: BUN/CREATININE RATIO 6 (6-25)
[2024-09-06 08:00] VITALS: BP 134/94; PULSE 72; RESP 18; TEMP 98.3; O2SAT 97
[2024-09-06 09:00] VITALS: BP 134/94; PULSE 72; RESP 18; TEMP 98.3; O2SAT 97
[2024-09-06] MEDS: HYDROCODONE/APAP 5MG-325MG TAB PO PRN (09:43)
[2024-09-06] MEDS ORDERED: ULTRAM 50MG50 MG PO (10:50)
[2024-09-06 12:00] VITALS: BP 147/97; PULSE 63; RESP 18; TEMP 98.2; O2SAT 96
== END 2024-09-06 13:18 | disposition home or self-care (01) | DRG 439 ==
LOC: ER 19:53 → ERHOLD 21:51 → MED/SURG2 22:44
PROVIDERS: ADMIT Internal Medicine; ATTEND Internal Medicine
DX: K85.20 Alcohol induced acute pancreatitis without necrosis or infection (principal); E87.1 Hypo-osmolality and hyponatremia; R73.03 Prediabetes; K86.1 Other chronic pancreatitis; F10.10 Alcohol abuse, uncomplicated; D64.9 Anemia, unspecified; D75.839 Thrombocytosis, unspecified; R73.9 Hyperglycemia, unspecified; I10 Essential (primary) hypertension; K76.0 Fatty (change of) liver, not elsewhere classified; E83.51 Hypocalcemia; K80.20 Calculus of gallbladder without cholecystitis without obstruction; Z72.0 Tobacco use; Z98.84 Bariatric surgery status
CPT/HCPCS: 36415; 74177; 80048; 80053; 80061; 83036; 83690; 84484; 85025; 93005; 94799; 99284; J1171; J1650; J2060; J2270; J2405; J2470; J3411; J7030; Q9967

== ENCOUNTER 2024-12-10 09:30 | Inpatient (IN) | payer OTHER ==
[2024-12-10] VITALS (7 sets, daily range): BP systolic 143–144; BP diastolic 89–90; PULSE 66–75; RESP 17–22; TEMP 97.8–98.1; O2SAT 96–99
[~2024-12-10] VITALS: Ht 175.3 cm; Wt 84.4 kg
[2024-12-10] MEDS ORDERED: IOPAMIDOL 370 MG/ML 100 ML INFUS..BTL INJ ONE (10:21)
[2024-12-10] MEDS: SODIUM CHLORIDE 0.9% 1000ML 1,000 ML IV STA (10:21)
[2024-12-10] MEDS: ONDANSETRON HCL INJ 2MG/ML 2ML 2 MG/ML VIAL IV STA (10:21)
[2024-12-10] MEDS: Morphine 4mg INJECTION 4 MG/ML INJ IV STA (10:22)
[2024-12-10 10:51] LABS: BASOPHILS % 0.2 % (0.0-1.0); EOSINOPHILS % 0.0 % (0.0-6.0); LYMPHOCYTES % 7.4 % (18.0-39.1); MONOCYTES % 5.8 % (4.4-11.3); NEUTROPHILS % 86.2 % (38.7-80.0); RED CELL DISTRIBUTION WIDTH 16.4 % (11.7-14.4)
[2024-12-10 11:07] LABS: EST GLOMERULAR FILTRATION RATE 85.0 ML/MIN (>=60)
[2024-12-10] MEDS: Morphine 4mg INJECTION 4 MG/ML INJ IV ONE (12:35)
[2024-12-10] MEDS: SODIUM CHLORIDE 0.9% 1000ML 1,000 ML IV SCH (12:35)
[2024-12-10] MEDS: Morphine 4mg INJECTION 4 MG/ML INJ IV PRN (16:50)
[2024-12-10] MEDS ORDERED: KETOROLAC TROMETHAMINE 30 MG/ML VIAL IV PRN (21:45)
[2024-12-10] MEDS: INSULIN LISPRO 100 UNIT/1 ML 3ML VIAL SQ SCH (21:45)
[2024-12-10] MEDS ORDERED: HYDRALAZINE HCL 20 MG/ML VIAL IV PRN (21:45)
[2024-12-10] MEDS: GABAPENTIN 100 MG CAP PO SCH (22:12)
[2024-12-10] MEDS: CELECOXIB 100 MG CAP PO SCH (22:12)
[2024-12-11] VITALS (7 sets, daily range): BP systolic 134–147; BP diastolic 94–97; PULSE 64–87; RESP 18; TEMP 97.4–98.4; O2SAT 97–100
[2024-12-11] MEDS: HYDROCODONE/APAP 10MG-325MG TAB PO PRN (05:16)
[2024-12-11 08:15] LABS: BASOPHILS % 0.2 % (0.0-1.0); EOSINOPHILS % 0.1 % (0.0-6.0); LYMPHOCYTES % 8.1 % (18.0-39.1); MONOCYTES % 6.2 % (4.4-11.3); NEUTROPHILS % 85.1 % (38.7-80.0); RED CELL DISTRIBUTION WIDTH 16.7 % (11.7-14.4)
[2024-12-11 08:35] LABS: EST GLOMERULAR FILTRATION RATE 113.0 ML/MIN (>=60)
[2024-12-11] MEDS: ONDANSETRON HCL INJ 2MG/ML 2ML 2 MG/ML VIAL IV PRN (09:39)
[2024-12-11] MEDS ORDERED: ACETAMINOPHEN 325 MG TAB PO PRN (18:45)
[2024-12-11] MEDS ORDERED: DEXTROSE 50% SYRINGE 50 ML IV PRN (18:45)
[2024-12-11] MEDS: INSULIN REGULAR, HUMAN 100 UNIT/1 ML SQ SCH (20:57)
[2024-12-11] MEDS: Morphine 4mg INJECTION 4 MG/ML INJ IV PRN (23:34)
[2024-12-12] VITALS (8 sets, daily range): BP systolic 126–152; BP diastolic 87–97; PULSE 58–76; RESP 18; TEMP 97.6–98.7; O2SAT 97–100
[2024-12-12 08:37] LABS: BASOPHILS % 0.4 % (0.0-1.0); EOSINOPHILS % 0.7 % (0.0-6.0); LYMPHOCYTES % 18.6 % (18.0-39.1); MONOCYTES % 5.3 % (4.4-11.3); NEUTROPHILS % 74.6 % (38.7-80.0); RED CELL DISTRIBUTION WIDTH 16.5 % (11.7-14.4)
[2024-12-12 08:57] LABS: EST GLOMERULAR FILTRATION RATE 117.0 ML/MIN (>=60)
[2024-12-12] MEDS: MULTIVITAMINS/MINERALS TAB PO SCH (09:22)
[2024-12-12] MEDS: Morphine 4mg INJECTION 4 MG/ML INJ IV PRN (15:47)
[2024-12-12] MEDS: ENOXAPARIN SOD INJ 40 MG/0.4 ML SYR SC SCH (17:33)
[2024-12-12] MEDS: MELATONIN 3 MG TAB PO PRN (21:08)
[2024-12-13] VITALS (7 sets, daily range): BP systolic 124–145; BP diastolic 72–93; PULSE 60–77; RESP 18–20; TEMP 97.4–98.6; O2SAT 97–100
[2024-12-13] MEDS: DEXTROSE 50% SYRINGE 50 ML IV PRN (00:50)
[2024-12-13] MEDS ORDERED: GADOBENATE DIMEGLUMINE 1 ML IV ONE (08:58)
[2024-12-14 03:25] VITALS: BP 125/91; PULSE 64; RESP 18; TEMP 98.1; O2SAT 98
[2024-12-14] MEDS ORDERED: ULTRAM 50MG50 MG PO (04:52)
[2024-12-14] MEDS ORDERED: PANTOPRAZOLE SO40 MG PO (04:52)
[2024-12-14] MEDS ORDERED: MULTIVITAMINS1 EAC6 PO (04:52)
[2024-12-14] MEDS ORDERED: ONDANSETRON ODT4 MG PO (04:52)
[2024-12-14 08:38] LABS: BASOPHILS % 0.8 % (0.0-1.0); EOSINOPHILS % 0.8 % (0.0-6.0); LYMPHOCYTES % 29.4 % (18.0-39.1); MONOCYTES % 5.8 % (4.4-11.3); NEUTROPHILS % 62.8 % (38.7-80.0); RED CELL DISTRIBUTION WIDTH 16.7 % (11.7-14.4)
[2024-12-14 08:55] LABS: EST GLOMERULAR FILTRATION RATE 119 ML/MIN (>=60)
[2024-12-14 09:10] VITALS: BP 125/91; PULSE 64; RESP 18; TEMP 98.1; O2SAT 98
[2024-12-14 09:19] VITALS: BP 129/89; PULSE 61; RESP 19; TEMP 98.8; O2SAT 96
== END 2024-12-14 10:58 | disposition home or self-care (01) | DRG 444 ==
LOC: ER 09:40 → ERHOLD 12:18 → MED/SURG3 15:59
PROVIDERS: ADMIT Internal Medicine; ATTEND Internal Medicine
DX: K80.71 Calculus of gallbladder and bile duct without cholecystitis with obstruction (principal); K85.10 Biliary acute pancreatitis without necrosis or infection; K85.20 Alcohol induced acute pancreatitis without necrosis or infection; K86.0 Alcohol-induced chronic pancreatitis; F10.10 Alcohol abuse, uncomplicated; K76.0 Fatty (change of) liver, not elsewhere classified; K76.9 Liver disease, unspecified; Z98.84 Bariatric surgery status; F17.200 Nicotine dependence, unspecified, uncomplicated
CPT/HCPCS: 36415; 74177; 74183; 76705; 80053; 82948; 83036; 83690; 85025; 99284; J1650; J2270; J2405; J2470; J2543; J7030; J7799; Q9967